=== PATIENT | male | born 1935 | race Caucasian/White ===

== ENCOUNTER → 2017-05-31 16:38 | Outpatient (CLI) | payer MEDICARE, BC, SELFPAY ==
--- NOTE | 2017-05-31 | XR_ITS ---
XR chest 2V HISTORY: Coronary artery disease, heart disease ITS.REASON: PRE CATH CXR ORDERING PHYSICIAN: Deonte Kathleen MD PATIENT AGE: 82 years COMPARISON: 08/27/2015 FINDINGS: There is cardiomegaly without failure. There has been a prior CABG. Bipolar pacemaker is present from left subclavian approach.. There is minimal blunting of the right CP angle suggesting small right-sided effusion. The lungs are otherwise clear. No lobar consolidation or collapse.. No acute bony abnormalities. IMPRESSION: Prior CABG with cardiomegaly without failure. Minimal blunting of the right CP angle suggesting small right pleural effusion
== END ==
PROVIDERS: PCP Internal Medicine; Visit Provider Internal Medicine
DX: I11.9 Hypertensive heart disease without heart failure (principal); I50.9 Heart failure, unspecified; I25.10 Atherosclerotic heart disease of native coronary artery without angina pectoris
CPT/HCPCS: 71046

== ENCOUNTER 2017-06-01 07:19 | Day surgery (SDC) | payer MEDICARE, BC, SELFPAY ==
[2017-06-01] VITALS (23 sets, daily range): BP systolic 88–117; BP diastolic 56–74; PULSE 80–89; RESP 16; TEMP 36.6; O2SAT 92–98; BMI 28.3
--- NOTE | 2017-06-01 | IR_ITS ---
CARDIAC CATHETERIZATION DATE OF CATHETERIZATION:06/01/2017 9:07 AM PROCEDURES: 1. Right heart catheterization 2. Left heart catheterization 3. Left ventriculogram 4. Selective coronary angiogram 5. Selective engagement of the left internal mammary artery to the LAD 6. Selective engagement of the saphenous vein graft to the circumflex artery 7. Selective engagement of the saphenous vein graft to the ramus intermedius INDICATION FOR TEST: 1. Ischemic cardiomyopathy 2. Accelerated angina pectoris 3. Coronary artery disease with history of bypass surgery 4. Pulmonary hypertension 5. Styloid congestive heart failure Informed consent was obtained prior to the procedure. COMPLICATIONS: None ESTIMATED BLOOD LOSS: Less than 10 ml. TECHNIQUE: One percent lidocaine was used to anesthetize the right groin. The right femoral artery was accessed via the Seldinger technique. A 4-Albanian and 7 uzbek sheath was placed in the right femoral artery and vein respectfully. The JR-4 and JL-4 catheter was also used to perform left heart catheterization, left ventriculography and selective coronary angiogram. At the end of the procedure the patient was transferred to the post-op holding area in stable condition for arterial sheath removal. ANGIOGRAPHIC RESULTS: 1. The left main artery normal 2. The left anterior descending artery has an ostial occlusion 3. The ramus intermedius is a medium-size branch and has mild proximal and mid vessel 10-20% stenoses 4. The circumflex artery is dominant and proximally occluded 5. The right coronary artery is nondominant and gives rise to a large RV marginal branch proximally which is normal. The remaining right coronary artery is a small vestigial vessel. 6. The DURAN to the LAD is a widely patent graft which backfills a large first diagonal artery 7. The saphenous vein graft to the ramus intermedius is ostially occluded 8. The saphenous vein graft to the circumflex artery is widely patent. It then skips over to a terminal obtuse marginal artery which is also widely patent. The graft is free of disease 9. The PARSONS ventriculogram reveals severe left ventricular dilatation with severely reduced ejection fraction estimated at 15-20% The left ventricular end-diastolic pressure 18 mmHg HEMODYNAMICS: Right atrial pressure is 7 mm Hg. Pulmonary arterial pressure is 33/20 mm Hg. Pulmonary artery occlusion pressure is 17 mm Hg. SATURATIONS: RA is 78 %. PA is 78 %. IMPRESSION: 1. Severe viejas three-vessel coronary artery disease as described above 2. Patent DURAN to the LAD 3. Patent DURAN to the dominant circumflex artery which is a skip graft to a first and terminal obtuse marginal artery 4. Occluded saphenous vein graft to the ramus intermedius 5. Severe left ventricular dilatation with severely reduced ejection fraction 6. Mild pulmonary hypertension yet still with decompensated euvolemic cardiopulmonary pressures PLAN: 1. Continue medical management 2. Risk factor modification
[2017-06-01 07:51] LABS: Basophils % 0.5 % (0.1-2.0); Eosinophils # 0.2 K/mm3 (0.0-0.4); Eosinophils % 2.9 % (0.1-12.0); Hematocrit 43.9 % (42.0-52.0); Lymphocytes # 0.8 K/mm3 (0.7-4.5); Lymphocytes % 13.4 K/mm3 (10-50); Mean Corpuscular HGB Conc 31.8 g/dL (31.8-35.4); Mean Corpuscular Hemoglobin 30.2 pg (27.0-31.2); Mean Corpuscular Volume 94.8 fl (80-94); Mean Platelet Volume 8.2 fl (7.4-10.4); Monocytes # 0.4 K/mm3 (0.1-1.0); Monocytes % 6.3 % (1.7-9.3); Neutrophils # 4.4 K/mm3 (1.8-7.8); Neutrophils % 76.8 % (37.0-80.0); Platelet Count 138 K/mm3 (142-424); Red Blood Count 4.63 M/mm3 (4.60-6.20); Red Cell Distribution Width 14.5 % (11.5-17.5); White Blood Count 5.7 K/mm3 (4.8-10.8)
[2017-06-01 08:00] LABS: Anion Gap 11.1 mEq/L (5-15); Blood Urea Nitrogen 17 mg/dL (7-18); Carbon Dioxide 30 mmol/L (21.0-32.0); Chloride 106 mmol/L (98-107); Creatinine Clearance Estimated 55 mL/min (0-300); Creatinine,Serum 1.17 mg/dL (0.70-1.30); Estimated Glomerular Filt Rate 60 ml/min (>60); GFR (African American) 72 ML/MIN (>60); Glucose 121 mg/dL (74-106); Potassium 4.1 mmoL/L (3.5-5.1); Sodium 143 mmol/L (136-145)
--- NOTE | 2017-06-01 10:58 | CA_ITS ---
PROCEDURE: 2-D M-mode and color Doppler study INDICATIONS FOR THE TEST: Chest pain + COPD Heart Murmur Tobacco Smoking Palpitations Fatigue Syncope Edema+ Hypertension+Diabetes Mellitus Rheumatic Fever SOB+YIP Obesity Hyperlipidemia+ Family History HD Additional History PATIENT INFORMATION HEIGHT:66 WEIGHT:177 GENDER: Male B/P:103/50 2-D/M-MODE INTERPRETATION: 2-D MEASUREMENTS OBSERVED VALUES IN CMS Right Ventricular Dimension (RVDd) 2.8 Interventricular Septum (Thickness)(IVsd) 1.6 Left Ventricular Internal Dimensions(LVIDd) 6.1 Left Ventricular Posterior Wall (Thickness)(LVPWd) 0.9 Aortic Root 3.3 Aortic Cusp Separation 1.7 Left Atrial Dimensions (LAD) 4.8 2D 1. Left atrium is moderately enlarged, left ventricle is moderately dilated, there is severely reduced left ventricular systolic function, visually estimated ejection fraction approximately 20%, left ventricle is globally hypokinetic, superimposed segmental wall motion abnormalities cannot be excluded. 2. The right atrium is normal size, right ventricle is mildly enlarged with normal contractility, there is a pacemaker lead seen in the right atrium and right ventricle. 3. The aortic valve is minimally thickened and fibrosed. 4. The mitral and tricuspid valve leaflets are minimally thickened. 5. The pulmonic valve is poorly visualized. 6. No significant pericardial effusion noted. DOPPLER INTERROGATION: Doppler interrogation of the aortic, mitral and tricuspid valvular presence of mild aortic, moderate mitral and tricuspid regurgitation, tricuspid and jet velocity insufficient for calculation of the right ventricular systolic pressure. CONCLUSION: 1. Moderately enlarged left atrium, moderately dilated left ventricle, severely reduced left ventricular systolic function, visually estimated ejection fraction approximately 20% as described above. 2. Mild aortic, moderate mitral and tricuspid regurgitation. 3. No significant pericardial effusion noted.
[2017-06-01 13:49] LABS: CATHL Arterial O2 SAT 78 % (90-100); CATHL Venous O2 SAT 78 % (75-80)
== END 2017-06-01 14:10 | disposition home or self-care (01) ==
PROVIDERS: Family Provider Internal Medicine; PCP Internal Medicine; Visit Provider Internal Medicine
DX: I25.118 Atherosclerotic heart disease of native coronary artery with other forms of angina pectoris (principal); I50.42 Chronic combined systolic (congestive) and diastolic (congestive) heart failure; I11.0 Hypertensive heart disease with heart failure; Z95.1 Presence of aortocoronary bypass graft; Z95.810 Presence of automatic (implantable) cardiac defibrillator
CPT/HCPCS: 80048; 82810; 85025; 93306; 93461; C1725; C1769; C1894; J1644; Q9967

== ENCOUNTER → 2017-06-29 14:47 | Outpatient (REF) | payer MEDICARE, BC, SELFPAY ==
[2017-06-29 14:56] LABS: Basophils % 0.6 % (0.1-2.0); Eosinophils # 0.1 K/mm3 (0.0-0.4); Eosinophils % 2.4 % (0.1-12.0); Hematocrit 43.6 % (42.0-52.0); Hemoglobin 14.1 g/dL (14.1-18.0); Lymphocytes # 0.8 K/mm3 (0.7-4.5); Lymphocytes % 14.9 K/mm3 (10-50); Mean Corpuscular HGB Conc 32.4 g/dL (31.8-35.4); Mean Corpuscular Hemoglobin 30.5 pg (27.0-31.2); Mean Corpuscular Volume 94.1 fl (80-94); Mean Platelet Volume 8.1 fl (7.4-10.4); Monocytes # 0.3 K/mm3 (0.1-1.0); Monocytes % 6.2 % (1.7-9.3); Neutrophils % 75.9 % (37.0-80.0); Platelet Count 137 K/mm3 (142-424); Red Blood Count 4.63 M/mm3 (4.60-6.20); Red Cell Distribution Width 14.7 % (11.5-17.5); White Blood Count 5.3 K/mm3 (4.8-10.8)
[2017-06-29 15:16] LABS: Alanine Aminotransferase 30 U/L (12-78); Albumin Level 3.6 gm/dL (3.4-5.0); Albumin/Globulin Ratio 1.4 (1.1-1.8); Alkaline Phosphatase 86 U/L (46-116); Anion Gap 12.5 mEq/L (5-15); Aspartate Amino Transferase 16 U/L (15-37); Blood Urea Nitrogen 11 mg/dL (7-18); Calcium 9.1 mg/dL (8.5-10.1); Carbon Dioxide 30 mmol/L (21.0-32.0); Chloride 105 mmol/L (98-107); Creatinine,Serum 1.03 mg/dL (0.70-1.30); Estimated Glomerular Filt Rate 69 ml/min (>60); GFR (African American) 84 ML/MIN (>60); Globulin 2.6 gm/dl (1.3-3.2); Glucose 98 mg/dL (74-106); Potassium 4.5 mmoL/L (3.5-5.1); Sodium 143 mmol/L (136-145); Total Protein,Serum 6.2 gm/dL (6.4-8.2)
== END ==
LOC: LAB 14:47
PROVIDERS: Visit Provider Internal Medicine
DX: K52.9 Noninfective gastroenteritis and colitis, unspecified (principal); R11.10 Vomiting, unspecified
CPT/HCPCS: 80053; 85025

== ENCOUNTER → 2017-06-30 11:01 | Outpatient (REF) | payer MEDICARE, BC, SELFPAY ==
[2017-06-30 11:04] LABS: Adenovirus F 40/41, stool Not Detected (NotDetected); Astrovirus Not Detected (NotDetected); Campylobacter Not Detected (NotDetected); Clostridium Difficile A/B, PCR Not Detected (NotDetected); Cryptosporidium Not Detected (NotDetected); Cyclospora Cayetanesis Not Detected (NotDetected); Entamoeba histolytica Not Detected (NotDetected); Enteroaggregative E coli Not Detected (NotDetected); Enteropathogenic E coli Not Detected (NotDetected); Enterotoxigenic E coli Not Detected (NotDetected); Giardia lamblia Not Detected (NotDetected); Norovirus Not Detected (NotDetected); Plesimonas Shigalloides, PCR Not Detected (NotDetected); Rotavirus A Not Detected (NotDetected); Salmonella, PCR Not Detected (NotDetected); Sapovirus Not Detected (NotDetected); Shiga-like toxin E coli Not Detected (NotDetected); Shigella Enterovasive E coli Not Detected (NotDetected); Vibrio Cholerae Not Detected (NotDetected); Vibrio, PCR Not Detected (NotDetected); Yersinia Entercolitica, PCR Not Detected (NotDetected)
== END ==
LOC: LAB 11:01
PROVIDERS: Visit Provider Internal Medicine
DX: K52.9 Noninfective gastroenteritis and colitis, unspecified (principal)
CPT/HCPCS: 87507

== ENCOUNTER → 2018-02-13 09:01 | Outpatient (CLI) | payer MEDICARE, BC, SELFPAY | PROVIDERS: PCP Internal Medicine; Visit Provider Internal Medicine | DX: I11.0 Hypertensive heart disease with heart failure (principal); I50.43 Acute on chronic combined systolic (congestive) and diastolic (congestive) heart failure | CPT/HCPCS: 93306 ==

== ENCOUNTER → 2018-03-10 11:22 | Outpatient (CLI) | payer MEDICARE, BC, SELFPAY ==
[2018-03-10 11:32] LABS: Basophils % 0.4 % (0.1-2.0); Eosinophils # 0.1 K/mm3 (0.0-0.4); Hematocrit 40.8 % (42.0-52.0); Hemoglobin 13.3 g/dL (14.1-18.0); Lymphocytes % 13.3 % (10-50); Mean Corpuscular HGB Conc 32.6 g/dL (31.8-35.4); Mean Corpuscular Hemoglobin 29.9 pg (27.0-31.2); Mean Corpuscular Volume 91.6 fl (80-94); Mean Platelet Volume 8.4 fl (7.4-10.4); Monocytes # 0.6 K/mm3 (0.1-1.0); Monocytes % 7.5 % (1.7-9.3); Neutrophils % 77.9 % (37.0-80.0); Platelet Count 138 K/mm3 (142-424); Red Blood Count 4.45 M/mm3 (4.60-6.20); Red Cell Distribution Width 14.4 % (11.5-17.5); White Blood Count 7.7 K/mm3 (4.8-10.8)
[2018-03-10 12:23] LABS: Anion Gap 11.7 mEq/L (5-15); Blood Urea Nitrogen 16 mg/dL (7-18); Calcium 9.1 mg/dL (8.5-10.1); Carbon Dioxide 32 mmol/L (21.0-32.0); Chloride 102 mmol/L (98-107); Creatinine,Serum 1.11 mg/dL (0.70-1.30); Estimated Glomerular Filt Rate 63 ml/min (>60); GFR (African American) 77 ML/MIN (>60); Glucose 104 mg/dL (74-106); Potassium 3.7 mmoL/L (3.5-5.1); Sodium 142 mmol/L (136-145); Troponin I 0.03 ng/ml (0.00-0.06)
== END ==
PROVIDERS: Visit Provider Internal Medicine
DX: R07.9 Chest pain, unspecified (principal); R10.9 Unspecified abdominal pain; R04.0 Epistaxis
CPT/HCPCS: 80048; 84484; 85025

== ENCOUNTER → 2018-03-15 07:15 | Outpatient (CLI) | payer MEDICARE, BC, SELFPAY ==
--- NOTE | 2018-03-15 07:16 | US_ITS ---
US abdomen complete HISTORY: Acute abdominal pain ITS.REASON: ABD PAIN, EPIGASTRIC PAIN ORDERING PHYSICIAN: Danish Clarke PATIENT AGE: 83 years COMPARISON: None FINDINGS: PANCREAS:Unremarkable. No obvious mass or abnormal fluid collection. No ductal dilatation LIVER:No focal liver lesions demonstrated. Homogeneous echogenicity. No intrahepatic biliary ductal dilatation evident RIGHT KIDNEY:There is a large cyst along the lower pole the right kidney measuring 19 x 9 cm. There is mild dilatation of the upper pole renal collecting system versus parapelvic renal cyst. LEFT KIDNEY:Unremarkable. No hydronephrosis. Normal size and echogenicity. GALLBLADDER:Prior cholecystectomy. Common bile duct is normal at 4 mm. AORTA:No evidence of aneurysmal dilatation. SPLEEN:Unremarkable. Normal size and echogenicity ASCITES:None demonstrated. IMPRESSION: 1. Large lobular right renal cyst along the lower pole the right kidney with mild hydronephrosis versus parapelvic renal cyst in the upper pole. 2. Prior cholecystectomy. No biliary dilatation.
--- NOTE | 2018-03-15 09:59 | XR_ITS ---
XR chest 2V HISTORY: ITS.REASON: COUGH,SPUTUM ORDERING PHYSICIAN: Danish Clarke PATIENT AGE: 83 years COMPARISON: 05/31/2017 FINDINGS: There has been a prior CABG. There is cardiomegaly without failure with bipolar pacemaker placement. No lobar consolidation or collapse is evident. There is blunting of the right CP angle which appears chronic. Irregular opacity noted over the right lung base at the 6 rib anteriorly may be due to attenuation artifact of the ribs and may be confirmed with follow-up. There are mild degenerative changes of the thoracic spine. IMPRESSION: Postsurgical changes with cardiomegaly as described above. Pacemaker in place. No change no acute finding
== END ==
PROVIDERS: PCP Internal Medicine; Visit Provider Internal Medicine
DX: R10.13 Epigastric pain (principal); R10.9 Unspecified abdominal pain
CPT/HCPCS: 71046; 76700

== ENCOUNTER → 2018-06-27 08:46 | Outpatient (CLI) | payer MEDICARE, BC, SELFPAY ==
[2018-06-27 09:10] LABS: Basophils # 0.1 K/mm3 (0-0.2); Basophils % 1.1 % (0.1-2.0); Eosinophils # 0.1 K/mm3 (0.0-0.4); Hemoglobin 15.3 g/dL (14.1-18.0); Lymphocytes # 1.3 K/mm3 (0.7-4.5); Lymphocytes % 18.7 % (10-50); Mean Corpuscular HGB Conc 32.5 g/dL (31.8-35.4); Mean Corpuscular Hemoglobin 30.1 pg (27.0-31.2); Mean Corpuscular Volume 92.5 fl (80-94); Monocytes # 0.4 K/mm3 (0.1-1.0); Monocytes % 5.6 % (1.7-9.3); Neutrophils # 5.2 K/mm3 (1.8-7.8); Neutrophils % 73.6 % (37.0-80.0); Platelet Count 191 K/mm3 (142-424); Red Blood Count 5.08 M/mm3 (4.60-6.20); Red Cell Distribution Width 14.7 % (11.5-17.5)
[2018-06-27 10:36] LABS: Alanine Aminotransferase 53 U/L (12-78); Albumin Level 3.9 gm/dL (3.4-5.0); Alkaline Phosphatase 90 U/L (46-116); Anion Gap 14.4 mEq/L (5-15); Aspartate Amino Transferase 32 U/L (15-37); Bilirubin,Direct 0.4 mg/dL (0.0-0.2); Bilirubin,Indirect 0.9 mg/dL (0.0-0.9); Bilirubin,Total 1.3 mg/dL (0.2-1.0); Blood Urea Nitrogen 26 mg/dL (7-18); Calcium 9.2 mg/dL (8.5-10.1); Carbon Dioxide 31 mmol/L (21.0-32.0); Chloride 103 mmol/L (98-107); Chol/HDL Ratio 3.6 (1-3.5); Cholesterol 165 mg/dL (140-200); Creatinine,Serum 1.46 mg/dL (0.70-1.30); Estimated Glomerular Filt Rate 46 ml/min (>60); Free Thyroxine Index 4.8 ug/dL (5.93-13.13); GFR (African American) 56 ML/MIN (>60); Glucose 129 mg/dL (74-106); HDL Cholesterol 46 mg/dL (27-67); LDL Cholesterol 101 mg/dL (0-130); Potassium 3.4 mmoL/L (3.5-5.1); Sodium 145 mmol/L (136-145); T4 (Thyroxine) 13.1 ug/dl (4.7-13.3); Thyroid Stimulating Hormone 2.85 uIU/ml (0.358-3.740); Total Protein,Serum 6.5 gm/dL (6.4-8.2); Triglycerides 92 mg/dL (30-200); Triiodothryronine (T3) Uptake 37 % (31-39); VLDL Cholesterol 18 mg/dL (0-40)
== END ==
PROVIDERS: Visit Provider Internal Medicine
DX: I47.2 Ventricular tachycardia (principal); E78.5 Hyperlipidemia, unspecified; I42.9 Cardiomyopathy, unspecified; R06.00 Dyspnea, unspecified; I50.9 Heart failure, unspecified; Z95.810 Presence of automatic (implantable) cardiac defibrillator; Z95.1 Presence of aortocoronary bypass graft
CPT/HCPCS: 36415; 80048; 80061; 80076; 84436; 84443; 84479; 85025

== ENCOUNTER → 2018-07-12 09:35 | Outpatient (CLI) | payer MEDICARE, BC, SELFPAY ==
[2018-07-12 10:33] LABS: Alanine Aminotransferase 52 U/L (12-78); Albumin Level 3.5 gm/dL (3.4-5.0); Alkaline Phosphatase 83 U/L (46-116); Anion Gap 9.6 mEq/L (5-15); Aspartate Amino Transferase 30 U/L (15-37); Bilirubin,Direct 0.3 mg/dL (0.0-0.2); Bilirubin,Indirect 0.6 mg/dL (0.0-0.9); Bilirubin,Total 0.9 mg/dL (0.2-1.0); Blood Urea Nitrogen 19 mg/dL (7-18); Carbon Dioxide 32 mmol/L (21.0-32.0); Chloride 105 mmol/L (98-107); Creatinine,Serum 1.25 mg/dL (0.70-1.30); Estimated Glomerular Filt Rate 55 ml/min (>60); GFR (African American) 67 ML/MIN (>60); Glucose 123 mg/dL (74-106); Potassium 3.6 mmoL/L (3.5-5.1); Sodium 143 mmol/L (136-145)
== END ==
PROVIDERS: Visit Provider Physician Assistant
DX: E78.5 Hyperlipidemia, unspecified (principal); I11.9 Hypertensive heart disease without heart failure; I25.10 Atherosclerotic heart disease of native coronary artery without angina pectoris; I25.2 Old myocardial infarction; I42.9 Cardiomyopathy, unspecified; I47.2 Ventricular tachycardia; I48.91 Unspecified atrial fibrillation; I50.9 Heart failure, unspecified; R06.00 Dyspnea, unspecified; R60.9 Edema, unspecified; Z79.01 Long term (current) use of anticoagulants; Z95.1 Presence of aortocoronary bypass graft; Z95.810 Presence of automatic (implantable) cardiac defibrillator
CPT/HCPCS: 36415; 80048; 80076

== ENCOUNTER → 2018-08-23 10:07 | Outpatient (CLI) | payer MEDICARE, BC, SELFPAY ==
[2018-08-23 10:56] LABS: Basophils # 0.1 K/mm3 (0-0.2); Basophils % 0.7 % (0.1-2.0); Eosinophils # 0.1 K/mm3 (0.0-0.4); Eosinophils % 1.5 % (0.1-12.0); Hematocrit 42.1 % (42.0-52.0); Hemoglobin 13.9 g/dL (14.1-18.0); Lymphocytes # 0.9 K/mm3 (0.7-4.5); Lymphocytes % 14.4 % (10-50); Mean Corpuscular HGB Conc 33.1 g/dL (31.8-35.4); Mean Corpuscular Hemoglobin 30.1 pg (27.0-31.2); Mean Corpuscular Volume 90.8 fl (80-94); Mean Platelet Volume 7.2 fl (7.4-10.4); Monocytes # 0.4 K/mm3 (0.1-1.0); Monocytes % 5.8 % (1.7-9.3); Neutrophils # 5.1 K/mm3 (1.8-7.8); Neutrophils % 77.6 % (37.0-80.0); Platelet Count 140 K/mm3 (142-424); Red Blood Count 4.63 M/mm3 (4.60-6.20); Red Cell Distribution Width 15.3 % (11.5-17.5); White Blood Count 6.6 K/mm3 (4.8-10.8)
[2018-08-23 13:42] LABS: Anion Gap 11.9 mEq/L (5-15); Blood Urea Nitrogen 24 mg/dL (7-18); Calcium 9.3 mg/dL (8.5-10.1); Carbon Dioxide 33 mmol/L (21.0-32.0); Chloride 106 mmol/L (98-107); Creatinine,Serum 1.12 mg/dL (0.70-1.30); Estimated Glomerular Filt Rate 63 ml/min (>60); GFR (African American) 76 ML/MIN (>60); Glucose 113 mg/dL (74-106); Potassium 4.9 mmoL/L (3.5-5.1); Sodium 146 mmol/L (136-145)
[2018-08-23 15:20] LABS: Alanine Aminotransferase 31 U/L (12-78); Albumin Level 3.6 gm/dL (3.4-5.0); Alkaline Phosphatase 85 U/L (46-116); Aspartate Amino Transferase 25 U/L (15-37); Bilirubin,Total 0.8 mg/dL (0.2-1.0); Chol/HDL Ratio 3.2 (1-3.5); Cholesterol 177 mg/dL (140-200); HDL Cholesterol 56 mg/dL (27-67); LDL Cholesterol 106 mg/dL (0-130); Thyroid Stimulating Hormone 2.95 uIU/ml (0.358-3.740); Total Protein,Serum 6.2 gm/dL (6.4-8.2); Triglycerides 75 mg/dL (30-200); VLDL Cholesterol 15 mg/dL (0-40)
[2018-08-23 15:25] LABS: Prostate Specific Ag, Diagnost 0 ng/mL (0.0-4.0)
== END ==
PROVIDERS: Physician Assistant; PCP Internal Medicine; Visit Provider Internal Medicine
DX: I50.22 Chronic systolic (congestive) heart failure; I25.118 Atherosclerotic heart disease of native coronary artery with other forms of angina pectoris; K22.70 Barrett's esophagus without dysplasia; Z95.1 Presence of aortocoronary bypass graft; Z79.01 Long term (current) use of anticoagulants; Z85.46 Personal history of malignant neoplasm of prostate
CPT/HCPCS: 36415; 80048; 80061; 82040; 82247; 83880; 84075; 84153; 84155; 84443; 84450; 84460; 85025

== ENCOUNTER → 2018-09-06 09:27 | Outpatient (CLI) | payer MEDICARE, BC, SELFPAY ==
[2018-09-06 10:29] LABS: Anion Gap 9.9 mEq/L (5-15); Blood Urea Nitrogen 24 mg/dL (7-18); Carbon Dioxide 34 mmol/L (21.0-32.0); Chloride 105 mmol/L (98-107); Creatinine,Serum 1.21 mg/dL (0.70-1.30); Estimated Glomerular Filt Rate 57 ml/min (>60); GFR (African American) 69 ML/MIN (>60); Glucose 122 mg/dL (74-106); Potassium 3.9 mmoL/L (3.5-5.1); Sodium 145 mmol/L (136-145)
== END ==
PROVIDERS: Visit Provider Physician Assistant
DX: I50.9 Heart failure, unspecified (principal)
CPT/HCPCS: 36415; 80048

== ENCOUNTER → 2018-09-18 10:19 | Outpatient (CLI) | payer MEDICARE, BC, SELFPAY ==
[2018-09-18 12:32] LABS: Anion Gap 11.3 mEq/L (5-15); Blood Urea Nitrogen 27 mg/dL (7-18); Calcium 8.9 mg/dL (8.5-10.1); Carbon Dioxide 33 mmol/L (21.0-32.0); Chloride 105 mmol/L (98-107); Creatinine,Serum 1.21 mg/dL (0.70-1.30); Estimated Glomerular Filt Rate 57 ml/min (>60); GFR (African American) 69 ML/MIN (>60); Glucose 106 mg/dL (74-106); Potassium 4.3 mmoL/L (3.5-5.1); Sodium 145 mmol/L (136-145)
== END ==
PROVIDERS: Visit Provider Physician Assistant
DX: E78.5 Hyperlipidemia, unspecified (principal); I11.9 Hypertensive heart disease without heart failure; I25.10 Atherosclerotic heart disease of native coronary artery without angina pectoris; I42.9 Cardiomyopathy, unspecified; I48.91 Unspecified atrial fibrillation; I50.9 Heart failure, unspecified; R60.9 Edema, unspecified; Z95.1 Presence of aortocoronary bypass graft; Z95.810 Presence of automatic (implantable) cardiac defibrillator
CPT/HCPCS: 36415; 80048

== ENCOUNTER → 2018-10-18 08:39 | Outpatient (CLI) | payer MEDICARE, BC, SELFPAY ==
[2018-10-18 09:45] LABS: Anion Gap 10.5 mEq/L (5-15); Blood Urea Nitrogen 23 mg/dL (7-18); Calcium 9.4 mg/dL (8.5-10.1); Carbon Dioxide 33 mmol/L (21.0-32.0); Chloride 102 mmol/L (98-107); Creatinine,Serum 1.26 mg/dL (0.70-1.30); Estimated Glomerular Filt Rate 55 ml/min (>60); GFR (African American) 66 ML/MIN (>60); Glucose 133 mg/dL (74-106); Magnesium 1.9 mg/dL (1.4-2.2); Potassium 3.5 mmoL/L (3.5-5.1); Sodium 142 mmol/L (136-145)
== END ==
PROVIDERS: Visit Provider Nurse Practitioner Family
DX: R60.0 Localized edema (principal); I50.9 Heart failure, unspecified
CPT/HCPCS: 36415; 80048; 83735

== ENCOUNTER → 2018-11-07 08:31 | Outpatient (CLI) | payer MEDICARE, BC, SELFPAY ==
--- NOTE | 2018-11-07 08:33 | CA_ITS ---
APPROVED REPORT EXAM: Comprehensive 2D, Doppler, and color-flow Echocardiogram [place]rub Planter: Sakina Roman RT(R) Ht: 5 ft 6 in Wt: 159lbs BSA: 1.81 BP: 122/80 mmHg Indications: Cardiomyopathy Left Ventricle Left atrium is moderately enlarged, left ventricle is moderately dilated, severely reduced left ventricular systolic function, visually estimated ejection fraction of 20%, left ventricle is globally hypokinetic. Right Ventricle Right atrium is moderately enlarged, right ventricle is normal size and contractility, there is a pacemaker leads in right ventricle. Aortic Valve Aortic valve is thickened and calcified, there is no aortic stenosis, there is mild aortic insufficiency. Mitral Valve Mitral valve leaflets are minimally thickened, there is no mitral stenosis, there is mild mitral regurgitation. Tricuspid Valve Tricuspid valve is grossly normal, there is moderate tricuspid regurgitation, calculated right ventricular systolic pressure 67 mmHg consistent with moderate pulmonary hypertension, inferior vena cava is dilated without significant inspiratory collapse. Pulmonic Valve Pulmonic valve is poorly visualized. Great Vessels Aortic root is normal size. Pericardium No significant pericardial effusion noted. 2D Dimensions LVOT 2.20 cm (M/F) 1.5-2.5 M-Mode Dimensions RVDd 2.00 cm (0.9-2.6) LA Diam 4.10 cm (1.9-4.0) LVDd 8.10 cm (3.5-5.7) Ao Diam 3.00 cm (2.0-3.7) LVDs 7.30 cm (3.5-5.7) AV Cusp 2.10 cm (1.5-2.6) IVSd 0.70 cm (0.6-1.1) PWd 0.90 cm (0.6-1.1) EF (Teich) 20.60% FS 9.88% EDV (Teich) 354.00 mL ESV (Teich) 281.00 mL LV Diastology E/A Ratio 1.30 MED E' 3.80 (< 7 cm/sec) E'/MED E' Ratio 26.80 (>14) LAT E' 6.43 (<10 cm/sec) E/LAT E' Ratio 15.90 (>14) Aortic Valve LVOT Max 141.00 (70-110 cm/s) LVOT VTI 26.00 cm AoV Peak Vic. 170.00 (50-130 cm/s) AI PHT 923.00 ms AO Peak GR. 12.00 mmHg AO Mean GR. 6.00 (<5 mmHg) AO VTI 29.50 (18-25 cm) KORY (VTI) 3.35 (2.5-4.5 cm2) Mitral Valve MV E Max Vic. 102.00 (40-130 cm/s) MV A Velocity 78.00 (40-130 cm/s) E/A Ratio 1.30 Tricuspid Valve TR P. Velocity 360.00 cm/s RAP Estimate 15.00 mmHg RVSP 67.00 mmHg Conclusion 1. Biatrial enlargement, dilated left ventricle, severely distal ventricular systolic function, visually estimated ejection fraction 20%, left ventricle is globally hypokinetic. 2. Mild aortic, mild mitral and moderate tricuspid regurgitation, calculated right ventricular systolic pressure 67 mmHg consistent with moderate pulmonary hypertension, inferior vena cava is dilated without significant inspiratory collapse. 3. No significant pericardial effusion noted. Electronically signed by : Manuel Mcdonald, 11/10/2018 14:12:47
== END ==
PROVIDERS: PCP Internal Medicine; Visit Provider Urology
DX: R06.09 Other forms of dyspnea (principal)
CPT/HCPCS: 93306

== ENCOUNTER → 2018-11-20 09:14 | Outpatient (CLI) | payer MEDICARE, BC, SELFPAY ==
[2018-11-20 10:33] LABS: Anion Gap 10.1 mEq/L (5-15); Blood Urea Nitrogen 30 mg/dL (7-18); Calcium 9.2 mg/dL (8.5-10.1); Carbon Dioxide 33 mmol/L (21.0-32.0); Chloride 105 mmol/L (98-107); Creatinine,Serum 1.42 mg/dL (0.70-1.30); Estimated Glomerular Filt Rate 48 ml/min (>60); GFR (African American) 58 ML/MIN (>60); Glucose 122 mg/dL (74-106); Potassium 4.1 mmoL/L (3.5-5.1); Sodium 144 mmol/L (136-145)
== END ==
PROVIDERS: Visit Provider Physician Assistant
DX: I25.10 Atherosclerotic heart disease of native coronary artery without angina pectoris (principal); I25.2 Old myocardial infarction; I42.9 Cardiomyopathy, unspecified; I48.91 Unspecified atrial fibrillation; I50.22 Chronic systolic (congestive) heart failure; R06.00 Dyspnea, unspecified; R60.9 Edema, unspecified; Z79.01 Long term (current) use of anticoagulants; Z95.1 Presence of aortocoronary bypass graft
CPT/HCPCS: 36415; 80048

== ENCOUNTER → 2018-12-04 08:51 | Outpatient (POV) | payer MEDICARE, BC, SELFPAY | PROVIDERS: PCP Internal Medicine; Visit Provider Nurse Practitioner Family | DX: Z00.00 Encounter for general adult medical examination without abnormal findings (principal) ==

== ENCOUNTER → 2018-12-21 10:10 | Outpatient (CLI) | payer MEDICARE, BC, SELFPAY ==
[2018-12-21 11:25] LABS: Anion Gap 8.9 mEq/L (5-15); Blood Urea Nitrogen 21 mg/dL (7-18); Calcium 9.3 mg/dL (8.5-10.1); Carbon Dioxide 32 mmol/L (21.0-32.0); Chloride 106 mmol/L (98-107); Creatinine,Serum 1.09 mg/dL (0.70-1.30); Estimated Glomerular Filt Rate 65 ml/min (>60); GFR (African American) 78 ML/MIN (>60); Glucose 112 mg/dL (74-106); Potassium 3.9 mmoL/L (3.5-5.1); Sodium 143 mmol/L (136-145)
== END ==
PROVIDERS: Visit Provider Internal Medicine Cardiovascular Disease
DX: E78.5 Hyperlipidemia, unspecified (principal); I11.9 Hypertensive heart disease without heart failure; I25.10 Atherosclerotic heart disease of native coronary artery without angina pectoris; I25.2 Old myocardial infarction; I42.9 Cardiomyopathy, unspecified; I48.91 Unspecified atrial fibrillation; I50.22 Chronic systolic (congestive) heart failure; I50.9 Heart failure, unspecified; R06.00 Dyspnea, unspecified; R60.9 Edema, unspecified; Z95.1 Presence of aortocoronary bypass graft; Z95.810 Presence of automatic (implantable) cardiac defibrillator
CPT/HCPCS: 36415; 80048

== ENCOUNTER → 2019-11-01 09:45 | Outpatient (CLI) | payer MEDICARE, BC, SELFPAY ==
[2019-11-01 11:16] LABS: Coronavirus 19 IgG Antibody Negative (Negative); Coronavirus 19 IgM Antibody Negative (Negative)
== END ==
PROVIDERS: Visit Provider Internal Medicine Gastroenterology
DX: Z01.818 Encounter for other preprocedural examination (principal)
CPT/HCPCS: 36415; 86328

== ENCOUNTER 2019-11-02 08:47 | Day surgery (SDC) | payer MEDICARE, BC, SELFPAY ==
[2019-10-31 14:30] VITALS: BMI 24.8
[2019-11-02 09:38] VITALS: BP 119/59; PULSE 69; RESP 20; TEMP 36.2; O2SAT 93
[2019-11-02 11:15] VITALS: O2SAT 97
--- NOTE | 2019-11-02 11:22 | HMH.ANESCL ---
[facility] Anesthesia Checklist - Patient Identification Patient Identification: Arm Band, Verbal (Name & ) - Structural Data Admitted From: Home Planned Operative Procedure/s: EGD Consent for Planned Operative Procedure(s) Verified: Yes Verified Documents: Surgical Consent, History and Physical - NPO Status Verified Time NPO: 00:00 - Chart Verification Results Verified: None - Additional verifications Anesthesia Reactions: No Hx Blood Transfusions: No Blood Transfusion Reaction: No - Airway Assessment C-Spine Mobility Assessed: Yes TMJ Mobility Assessed: Yes Dentition: Poor Dentition (missing,) - Neurological Assessment Level of Consciousness: Awake, Alert, Appropriate, Follows Commands Hx Seizures: No Numbness or tingling in extremities: No - Anesthesia Plan Anesthesia Risk discussed: Yes Anesthesia Plan: Verified ASA Class: III Anesthesia Type: MAC [facility] History I have reviewed the patient's past medical history: Yes Medical History: Reports:: Atrial Fibrillation, Cancer (ESOPHAGUS), Cardiomyopathy, Congestive Heart Failure, Coronary Artery Disease, Gastroesophageal Reflux Disease(GERD), Hyperlipidemia, Hypertension, Internal Pacemaker, Lung Disease, Myocardial Infarction Denies:: Diabetes Mellitus Type 1, Diabetes Mellitus Type 2, MRSA, Seizures *Have you ever received a pneumonia vaccine?: Yes *Have you received a flu vaccine this season?: Yes (2019) Other Medical History: Reports: Arthritis. Denies: Blood Transfusion Reaction Anesthesia experience/problems:: No prior complications Laterality Cases: Bilateral: Tonsillectomy Other Surgeries: Yes: Angioplasty, CABG, Cardiac Catheterization, Coronary Stent, EGD, Hernia Repair, Pacemaker, Other Amputation: No Fractures: No - *Social History Last grade of school completed: Advanced degree Smoking Status: Never smoker Alcohol Intake: never Substance Use Type: denies use *Occupational Status:: unemployed Housing: house Household Members: family *Travel in the last 8 weeks: None Family Hx:: Coronary Artery Disease, Diabetes, Heart Attack
--- NOTE | 2019-11-02 11:39 | HMH.PROC ---
[facility] Procedure Note Procedure Note:: Upper Endoscopy Procedure Report: Esophagogastroduodenoscopy with cold biopsies and TTS balloon dilation Endoscopost: Grant Adkins II, MD Referring Physician: Danish Clarke MD/Dr. Cardozo (GI at [facility]) Date of Procedure: November 02, 2019 Equipment: Olympus GIF 180 standard upper endoscope Sedation: MAC sedation Indications: Mr. Blanco is an 84-year-old gentleman with a history of dyspepsia and dysphagia. He did have a prior history of Mims's esophagus with high-grade dysplasia and and he did go to [facility] in 2014 and had endoscopic mucosal resection. He also had radiofrequency ablation. He had an EGD with [facility] in September 2018 and had very short segment Mims's esophagus. Narrowband imaging was utilized and there were 2 different sites with high-grade mucosal dysplasia. He has not wanted to do endoscopic mucosal resection but I did send him to Dr. Andrade at the [facility] to discuss this. He does have a significant cardiomyopathy with CASHD. The patient does report some recurrent dysphagia, heartburn and burning sensation. He has had some intentional weight loss. He does have some postprandial coughing. The patient has taken omeprazole and pantoprazole for chronic GERD. There was some mild linear reactive gastropathy of the antrum Procedure: Prior to the procedure, a history and physical exam was performed, and patient's medications and allergies were reviewed. The risks, benefits and alternatives of the sedation and procedure were discussed with the patient. All questions were answered and informed consent was obtained. The patient was brought to the procedure room. Patient identification and proposed procedure were verified by the physician and the nurse. The patient was placed in a left lateral decubitus position and the scope was passed under direct vision. Throughout the procedure, the patient's blood pressure, pulse, and oxygen saturations were monitored continuously. The upper GI endoscopy was accomplished without difficulty. The patient tolerated the procedure well. Findings: The scope was passed directly into the upper esophagus and advanced to the third portion of the duodenum. The post bulbar duodenum and duodenal bulb were normal with normal mucosa and conniventes. The scope was withdrawn through a normal duodenal bulb and pylorus into the stomach. There was some mild linear reactive gastropathy of the antrum. There was mild chronic gastritis of the body and fundus. Upon retroflexion there was a 2 cm hiatal hernia. The scope was withdrawn into the esophagus. There was evidence of glandular dysplasia and some nodular glandular changes at the GE junction with a serrated Z line and short segment Mims's esophagus. Directed biopsies were taken in 2 different formalin jars labeled Mims's #1 and Mims's #2. There was grade B reflux esophagitis. There was no obvious distal esophageal cancer. There was some minor peptic stricture and the distal esophagus was dilated to 60 Korean/20 mm with a TTS hydrostatic balloon. Impression: 1. Short segment Mims's esophagus with NBI evidence of dysplasia status post biopsies 2. Grade B reflux esophagitis with peptic stricture and mild esophageal dysmotility with small 2 cm hiatal hernia status post dilation to 20 mm Plan: I will follow-up the biopsies. Given the patient's age and cardiac comorbidity, we will discuss whether we should consider EMR/radiofrequency ablation again. I would continue PPI therapy and consider promotility therapy.
[2019-11-02 11:42] VITALS: BP 80/49; PULSE 73; RESP 18; TEMP 36.1; O2SAT 92
[2019-11-02 11:52] VITALS: BP 103/61; PULSE 70; RESP 18; O2SAT 97
[2019-11-02 12:02] VITALS: BP 115/69; PULSE 70; RESP 18; O2SAT 100
[2019-11-02 12:25] VITALS: BP 113/67; PULSE 71; RESP 18; O2SAT 99
== END 2019-11-02 12:29 | disposition hospice, home (50) ==
PROVIDERS: PCP Internal Medicine; Visit Provider Internal Medicine Gastroenterology
PROC: 0DJ08ZZ Inspection of Upper Intestinal Tract, Via Natural or Artificial Opening Endoscopic (ICD-10-PCS; CPT 43235; principal; 2019-11-02 10:00)
DX: K22.711 Barrett's esophagus with high grade dysplasia (principal); K22.4 Dyskinesia of esophagus; K21.0 Gastro-esophageal reflux disease with esophagitis; K44.9 Diaphragmatic hernia without obstruction or gangrene; Z85.01 Personal history of malignant neoplasm of esophagus; Z87.19 Personal history of other diseases of the digestive system; I25.10 Atherosclerotic heart disease of native coronary artery without angina pectoris; I42.9 Cardiomyopathy, unspecified; I50.9 Heart failure, unspecified; I11.0 Hypertensive heart disease with heart failure; E78.5 Hyperlipidemia, unspecified; I25.2 Old myocardial infarction; Z95.0 Presence of cardiac pacemaker
CPT/HCPCS: 43233; 88305; C1726

== ENCOUNTER → 2020-01-14 14:49 | Outpatient (CLI) | payer MEDICARE, BC, SELFPAY ==
--- NOTE | 2020-01-14 14:54 | XR_ITS ---
PROCEDURE: XR SHOULDER LT MIN 2V CLINICAL INDICATION: LT SHOULDER PAIN COMPARISON: No exams were available for comparison FINDINGS: Is intact, there is minor degenerate change of the AC joint with spurring inferiorly. The humeral head and glenoid appear intact. The left-sided cardiac pacemaker is seen overlying the left lower lateral chest wall IMPRESSION: Minor degenerative change AC joint otherwise negative left shoulder Dictated by: Dr. Rashi Ventura MD 01/14/2020 15:20 Dr. Rashi Ventura MD in [place] 01/14/2020 15:20
--- NOTE | 2020-01-14 14:55 | XR_ITS ---
PROCEDURE: XR HIP LT 2-3V W/PELVIS CLINICAL INDICATION: LT HIP PAIN COMPARISON: CR HIPCMRT XR hip RT 2-3V w/pelvis from 06/16/2018 FINDINGS: No fracture or dislocation is evident. No significant degenerative change. There is minor spurring of the acetabulum bilaterally. The SI joints and symphysis pubis appear normal. There is disc space narrowing and osteophytic spurring the L4-5 level lumbar spine. No lytic or blastic change. Unremarkable soft tissues. IMPRESSION: Minor osteoarthritic changes of both hips, no acute fracture seen Dictated by: Dr. Rashi Ventura MD 01/14/2020 15:23 Dr. Rashi Ventura MD in [place] 01/14/2020 15:23
== END ==
PROVIDERS: PCP Internal Medicine; Visit Provider Internal Medicine
DX: M25.512 Pain in left shoulder (principal); M25.552 Pain in left hip
CPT/HCPCS: 73030; 73502

== ENCOUNTER 2020-01-28 18:06 | Emergency (ER) | payer MEDICARE, BC, SELFPAY ==
[2020-01-28 18:16] VITALS: BP 158/89; PULSE 49; RESP 17; TEMP 36.9; O2SAT 99; BMI 23.8
--- NOTE | 2020-01-28 18:26 | CT_ITS ---
PROCEDURE: CT ABDOMEN PELVIS W CON CLINICAL INDICATION: pain, swelling Right lower abdominal pain, inguinal pain and swelling COMPARISON: CT ABDPELW CT ABD PELVIS W/ CONTRAST from 11/26/2016 TECHNIQUE: IV Contrast: 75ML OPTIRAY 350 Oral Contrast None Axial images obtained with sagittal and coronal reformats. All CT scans at the facility use one or more dose reduction, viz: automated exposure control, ma/kV adjustment per patient size (including targeted exams where dose is matched to indication, i.e. head), or iterative reconstruction technique. FINDINGS: LOWER THORAX: There are atelectatic changes or scarring in the lung bases. There is cardiomegaly. Artifact is present from cardiac pacemaker device. There has been a prior CABG. There is mild thickening of the GE junction with a small hiatal hernia noted. ABDOMEN & PELVIS: Prior cholecystectomy with biliary ectasia. There is a small duodenal diverticulum in the pancreatic head region. The biliary ectasia has increased compared to 11/26/2016. There is also mild prominence of the pancreatic duct. No focal liver lesion. The spleen, adrenal glands, and left kidney have an unremarkable appearance. There is a large right renal cyst measuring 16 x 13 cm. This does not appear significantly changed in size compared to the previous exam. This cyst is causing right-sided hydronephrosis stretching the renal collecting system and right ureter posteriorly. There is a exophytic left renal cyst at 1 cm. No intestinal obstruction or free air. No evidence of appendicitis. There is colonic diverticulosis without diverticulitis. Diverticula also involve the terminal ileum. No intestinal obstruction or free air. Hypodensity is present anterior to the right external iliac artery and could be due to small lymph node or cyst. This is not significantly changed measuring 1.5 cm. There is mild lumbar scoliosis convex left. IMPRESSION: 1. Small bilateral inguinal hernias containing fat and small amount fluid on the right. No evidence of bowel herniation or obstruction. 2. Colonic diverticulosis without diverticulitis. There also some diverticula involving the terminal ileum. 3. Large right renal cyst demonstrating simple cystic features unchanged in size but causing right-sided hydronephrosis due to extrinsic mass effect on the proximal right ureter and renal pelvis 4. Prior cholecystectomy with moderate dilatation of the common bile duct and intrahepatic biliary radicles. MRCP may provide further evaluation. Dictated by: Williams Key MD 01/29/2020 09:22 Williams Key MD in [place] 01/29/2020 09:22
--- NOTE | 2020-01-28 18:44 | PC.NURSE ---
po contrast completed. radiology notified
--- NOTE | 2020-01-28 18:45 | HMH.EDABDPAI ---
ED Disposition Condition on Discharge: Good - Critical Care Critical Care Time: No <GregRicardo - Last Filed: 01/28/20 19:38> <Drew Negro - Last Filed: 01/28/20 21:51> Clinical Impression: Abdominal pain in male, Renal cyst, Diverticulosis Inguinal hernia Qualifiers: Obstruction and gangrene presence: without obstruction or gangrene Laterality: bilateral Recurrence: not specified as recurrent Qualified Code(s): K40.20 - Bilateral inguinal hernia, without obstruction or gangrene, not specified as recurrent Disposition: Home, Self-Care Instructions: DI for Acute Abdomen Additional Instructions: call pcp for follow up Referrals: Danish Clarke [Primary Care Provider] - Attestation: On 01/28/20, the high probability of a clinically significant, sudden or life threatening deterioration of the following system(s) required my full and direct attention, intervention and personal management. The time I documented below is in addition to time spent performing reported procedures but includes the following listed in this critical care notation. Medical Decision Making - Medical Records Medical records reviewed: Yes: I reviewed the patient's medical records. - Bo Inquiry Pt receiving controlled substance: Yes Bo was queried for this patient: No Reason not queried -: Emergent pt cond-no time Risks and benefits of using a controlled substance: were discussed with pt by me - Lab Data Result diagrams: 01/28/20 18:45 01/28/20 18:45 - Reevaluation(s) Time: 19:38 <JefryivrgilRicardo marshall - Last Filed: 01/28/20 19:38> - Lab Data Lab results reviewed: Yes: I reviewed the patient's lab results. Result diagrams: 01/28/20 18:45 01/28/20 18:45 - CT Data CT Scan: Abdomen, Pelvis Time Received: 21:[address] Reviewed: Yes: I have viewed the radiologist's interpretation Preliminary Findings: Abnormal (see chart ) - Reevaluation(s) Time: 21:49 <Drew Negro - Last Filed: 01/28/20 21:51> Vital Signs: 01/28/20 18:16 Temperature 98.5 F Temperature Source Oral Pulse Rate [Right Radial] 49 L Respiratory Rate 17 Blood Pressure [Right Arm] 158/89 H Blood Pressure Mean [Right Arm] 112 02 Sat by Pulse Oximetry 99 Oxygen Delivery Method Room Air - Lab Data Lab Results 01/28/20 18:45: WBC 7.5, RBC 4.87, Hgb 14.7, Hct 45.5, MCV 93.6, MCH 30.3, MCHC 32.4, RDW 14.5, Plt Count 174, MPV 7.8, Neut % (Auto) 71.3, Lymph % (Auto) 20.9, Screven % (Auto) 5.0, Eos % (Auto) 2.2, Baso % (Auto) 0.7, Neut # (Auto) 5.4, Lymph # (Auto) 1.6, Screven # (Auto) 0.4, Eos # (Auto) 0.2, Baso # (Auto) 0.1 01/28/20 18:45: Sodium 139, Potassium 3.3 L, Chloride 98, Carbon Dioxide 31 H, Anion Gap 13.3, BUN 18, Creatinine 1.00, Estimated Creat Clear 52, Estimated GFR 71, Est GFR ( Amer) 86, Glucose 123 H, Calcium 9.7, Total Bilirubin 0.8, AST 29, ALT 19, Alkaline Phosphatase 81, Total Protein 7.3, Albumin 4.5, Globulin 2.8, Albumin/Globulin Ratio 1.6, Lipase 89 01/28/20 19:48: Urine Color Yellow, Urine Appearance Clear, Urine pH 6.0, Ur Specific Brinson 1.020, Urine Protein Negative, Urine Glucose (UA) Negative, Urine Ketones Negative, Urine Blood 1+, Urine Nitrate Negative, Urine Bilirubin Negative, Urine Urobilinogen 0.2, Ur Leukocyte Esterase Negative, Urine RBC 5-10, Urine WBC 5-10, Ur Squamous Epith Cells 3-5, Urine Bacteria 1+, Hyaline Casts 5-10 Orders (Tests/Meds): ED MEDICATIONS Discontinued Medications Generic Name Dose Route Start Last Admin Trade Name Freq PRN Reason Stop Dose Admin Diatrizoate Meglum/Diatrizoate Sod 30 ml 01/28/20 18:26 01/28/20 18:30 Diatrizoate Cecilia 66% & Diatrizoate Na 10% 30ml Udc PO 01/28/20 18:27 30 ml ONCE ONE Administration Iopamidol 75 ml 01/28/20 20:41 01/28/20 20:42 Iopamidol-370 (76%); 50ml Vial IV 01/28/20 20:42 75 ml ONCE ONE Administration Morphine Sulfate 4 mg 01/28/20 18:27 01/28/20 18:30 Morphine 4mg/Ml Syringe IV 01/28/20 18:28 4 mg
[2020-01-28 18:50] LABS: Basophils # 0.1 K/mm3 (0-0.2); Basophils % 0.7 % (0.1-2.0); Eosinophils # 0.2 K/mm3 (0.0-0.4); Eosinophils % 2.2 % (0.1-12.0); Hematocrit 45.5 % (42.0-52.0); Hemoglobin 14.7 g/dL (14.1-18.0); Lymphocytes # 1.6 K/mm3 (0.7-4.5); Lymphocytes % 20.9 % (10-50); Mean Corpuscular HGB Conc 32.4 g/dL (31.8-35.4); Mean Corpuscular Hemoglobin 30.3 pg (27.0-31.2); Mean Corpuscular Volume 93.6 fl (80-94); Mean Platelet Volume 7.8 fl (7.4-10.4); Monocytes # 0.4 K/mm3 (0.1-1.0); Neutrophils # 5.4 K/mm3 (1.8-7.8); Neutrophils % 71.3 % (37.0-80.0); Platelet Count 174 K/mm3 (142-424); Red Blood Count 4.87 M/mm3 (4.60-6.20); Red Cell Distribution Width 14.5 % (11.5-17.5); White Blood Count 7.5 K/mm3 (4.8-10.8)
[2020-01-28 18:57] LABS: Chloride 98 mmol/L (98-107); Potassium 3.3 mmoL/L (3.5-5.1); Sodium 139 mmol/L (136-145)
[2020-01-28 18:59] LABS: Alanine Aminotransferase 19 U/L (12-78); Alkaline Phosphatase 81 U/L (38-126); Aspartate Amino Transferase 29 U/L (17-59); Bilirubin,Total 0.8 mg/dl (0.2-1.3); Blood Urea Nitrogen 18 mg/dl (9-20); Creatinine Clearance Estimated 52 mL/min (50-200); Estimated Glomerular Filt Rate 71 ml/min (>60); GFR (African American) 86 ML/MIN (>60)
[2020-01-28 19:00] LABS: Albumin Level 4.5 g/dl (3.5-5.0); Albumin/Globulin Ratio 1.6 (1.1-1.8); Anion Gap 13.3 mEq/L (5-15); Calcium 9.7 mg/dl (8.4-10.2); Carbon Dioxide 31 mmol/L (22.0-30.0); Globulin 2.8 g/dL (1.3-3.2); Glucose 123 mg/dl (74-100); Lipase 89 U/L (23-300); Total Protein,Serum 7.3 g/dl (6.3-8.2)
[2020-01-28 19:55] LABS: Microscopic, Urine URINE MICROSCOPIC (MICROSCOPIC)
[2020-01-28 20:11] LABS: Appearance,Urine CLEAR (Clear); Bilirubin,Urine Negative (Negative); Blood, Urine 1+ (Negative); Color,Urine YELLOW (Yellow); Glucose,Urine (UA) Negative (Negative); Ketones,Urine Negative (Negative); Leukocyte Esterase,Urine Negative (Negative); Nitrate,Urine Negative (Negative); Protein,Urine Negative (Negative); Urobilinogen,Urine 0.2 EU/dl (0.2)
--- NOTE | 2020-01-28 20:36 | PC.NURSE ---
pt to ct
[2020-01-28 20:53] LABS: Bacteria,Urine 1+ /lpf
[2020-01-28 22:09] VITALS: BP 148/68; PULSE 56; RESP 16; TEMP 36.9; O2SAT 97
== END 2020-01-28 22:12 | disposition home or self-care (01) ==
PROVIDERS: Emergency Provider Emergency Medicine; PCP Internal Medicine
DX: K40.20 Bilateral inguinal hernia, without obstruction or gangrene, not specified as recurrent (principal); K57.90 Diverticulosis of intestine, part unspecified, without perforation or abscess without bleeding; N28.1 Cyst of kidney, acquired; I48.20 Chronic atrial fibrillation, unspecified; K21.9 Gastro-esophageal reflux disease without esophagitis; E78.5 Hyperlipidemia, unspecified; I10 Essential (primary) hypertension; Z95.0 Presence of cardiac pacemaker; I25.2 Old myocardial infarction; Z88.2 Allergy status to sulfonamides; Z88.5 Allergy status to narcotic agent
CPT/HCPCS: 74177; 80053; 81001; 83690; 85025; 87086; 96374; 96375; 99283; J2405; Q9967

== ENCOUNTER 2020-04-23 08:02 | Inpatient (IN) | payer MEDICARE, BC, SELFPAY ==
[2020-04-23] VITALS (44 sets, daily range): BP systolic 87–139; BP diastolic 37–84; PULSE 70–100; RESP 10–36; TEMP 36.8–37; O2SAT 92–100; BMI 21.9; BMI 23.1
--- NOTE | 2020-04-23 08:16 | XR_ITS ---
PROCEDURE: XR CHEST PORTABLE Referring Doctor: Brandon Khan Patient Age:85Y CLINICAL HISTORY: nausea, soa COMPARISON: CR CXR2V XR chest 2V from 05/31/2017 CR CXR2V XR chest 2V from 03/15/2018 CR CXR2 XR chest AP from 06/16/2018 FINDINGS: AP supine CXR compared to May 2018 and February 2018; higher contrast technique used on today's study. Prominent cardiomegaly again evident with pacer device. However pulmonary vascularity appears normal to upper normal. No pleural effusions no pneumothorax no obvious CHF. Pacemaker/defibrillator device overlying the left chest with atrial and ventricular leads stable, intact. The pacer device is been revised since. Previous sternotomy, CABG again noted. Also on today's study vague round device projected over the heart at midline of the may reflect overlying defibrillator pad; there is also a pad overlying the left cardiac apex with and left lung base There is slight coarsening markings towards the right CP angle-most likely reflects some mild chronic fibrotic changes accentuated on today's higher contrast technique CXR; doubt but could not exclude a subtle infiltrate but higher contrast IMPRESSION: No definitive acute findings. Slight coarsening of markings at at the lateral right base most likely reflects accentuated chronic fibrotic changes on today's higher contrast CXR. Doubt early infiltrate . Generous cardiomegaly with CABG and pacemaker.. No overt CHF; no pleural effusions Dictated by: Alexander Easton MD 04/23/2020 12:32 Alexander Easton MD in [place] 04/23/2020 12:32
--- NOTE | 2020-04-23 08:17 | ECG_ITS ---
APPROVED REPORT Exam: Resting ECG HR:76 bpm ECG Measurements Heart Rate 76 AXES WY 120 P 88 QRSd 198 QRS 208 QT 482 T 0 QTc 542 Conclusion Demand pacemaker, interpretation is based on intrinsic rhythm Undetermined rhythm Right bundle branch block Possible Lateral infarct, age undetermined Inferior infarct, age undetermined Abnormal ECG Electronically signed by : Kashif Marie, 04/24/2020 06:25:11
--- NOTE | 2020-04-23 08:18 | PC.NURSE ---
contacted cardiology to request pt pacemaker be interpreted per ER MD request
--- NOTE | 2020-04-23 08:19 | PC.NURSE ---
lab at bedside to draw labs
--- NOTE | 2020-04-23 08:26 | HMH.EDGENADL ---
ED Disposition Clinical Impression: V-tach Syncope Qualifiers: Syncope type: unspecified Qualified Code(s): R55 - Syncope and collapse Nausea and vomiting Qualifiers: Vomiting type: unspecified Vomiting Intractability: intractable Qualified Code(s): R11.2 - Nausea with vomiting, unspecified Disposition: Admitted As Inpatient Condition on Discharge: Critical - Critical Care Critical Care Time: Yes Attestation: On , the high probability of a clinically significant, sudden or life threatening deterioration of the following system(s) required my full and direct attention, intervention and personal management. The time I documented below is in addition to time spent performing reported procedures but includes the following listed in this critical care notation. Total Critical Care Time: 45 Vital system(s) involved:: Circulatory Failure, Central Nervous System, Metabolic Failure, Respiratory Failure My critical care processes included: Assessment & monitoring of V/S, Initial and Re-exams, Data Review/Interpretation, Coordinating Care, Medication Orders and management, Documentation Medical Decision Making - Medical Records Medical records reviewed: Yes: I reviewed the patient's medical records. - Bo Inquiry Pt receiving controlled substance: No Vital Signs: 04/23/20 08:02 Temperature 98.3 F Temperature Source Oral Pulse Rate [Apical] 70 Respiratory Rate 20 Blood Pressure [Right Arm] 107/43 L Blood Pressure Mean [Right Arm] 64 Blood Pressure Source [Right Arm] Automatic Cuff Blood Pressure Position [Right Arm] Sitting 02 Sat by Pulse Oximetry 100 Oxygen Delivery Method Room Air - Lab Data Lab Results 04/23/20 08:25: WBC 7.1, RBC 4.90, Hgb 14.3, Hct 43.1, MCV 88.0, MCH 29.2, MCHC 33.2, RDW 14.1, Plt Count 207, MPV 7.7, Neut % (Auto) 80.8 H, Lymph % (Auto) 11.5, [place] % (Auto) 5.8, Eos % (Auto) 1.2, Baso % (Auto) 0.7, Neut # (Auto) 5.7, Lymph # (Auto) 0.8, [place] # (Auto) 0.4, Eos # (Auto) 0.1, Baso # (Auto) 0.1 04/23/20 08:25: Sodium 134 L, Potassium 2.0 L*, Chloride 82 L, Carbon Dioxide 40 H, Anion Gap 14.0, BUN 54 H, Creatinine 1.80 H, Estimated Creat Clear 26, Estimated GFR 36 L, Est GFR ( Amer) 44 L, Glucose 194 H, Calcium 10.2, Total Bilirubin 1.2, Direct Bilirubin 0.2, Conjugated Bilirubin 0.0, Indirect Bilirubin 1.0 H, Unconjugated Bilirubin 1.0, AST 34, ALT 21, Alkaline Phosphatase 97, Troponin I 0.52 H, Total Protein 7.9, Albumin 4.8, Lipase 107 Result diagrams: 04/23/20 08:25 04/23/20 08:25 Orders (Tests/Meds): ED MEDICATIONS Generic Name Dose Route Start Last Admin Trade Name Freq PRN Reason Stop Dose Admin Sodium Chloride 1,000 mls @ 999 mls/hr 04/23/20 08:30 04/23/20 08:19 Sod Chlor 0.9% 1000ml Bag IV 04/23/20 09:30 999 mls/hr .Q1H1M KATHERYN Administration Magnesium Sulfate 2 gm/ Sodium 104 mls @ 100 mls/hr 04/23/20 09:00 Chloride IV 04/23/20 10:02 ONCE ONE Amiodarone HCl 900 mg/ 518 mls @ 33.3 mls/hr 04/23/20 09:15 Dextrose IV 04/24/20 00:48 .[id number] KATHERYN Discontinued Medications Generic Name Dose Route Start Last Admin Trade Name Freq PRN Reason Stop Dose Admin Amiodarone HCl 150 mg/ 103 mls @ 600 mls/hr 04/23/20 08:43 Dextrose IV 04/23/20 08:53 ONCE ONE Ondansetron HCl 4 mg 04/23/20 08:03 04/23/20 08:04 Ondansetron 4mg/2ml Vial IV 04/23/20 08:04 4 mg ONCE ONE Administration Prochlorperazine Edisylate 10 mg 04/23/20 09:13 Prochlorperazine 10mg/2ml Vial IV 04/23/20 09:14 ONCE ONE ORDERS Category Date Time Status Chest XR -- portable [XR chest portable] Stat Exams 04/23/20 08:16 Ordered Full Resp Panel w/COVID ([facility]) Routine Lab 04/23/20 08:46 Ordered Troponin I Q3H Lab 04/23/20 11:15 Ordered Troponin I Q3H Lab 04/23/20 14:15 Ordered - ECG Data Tracing #1 EKG at 0817 shows a paced rhythm with a rate of 76. There are wide QRSs with a bizarre pattern however it is consistent with p
[2020-04-23 08:43] LABS: Basophils # 0.1 K/mm3 (0-0.2); Basophils % 0.7 % (0.1-2.0); Eosinophils # 0.1 K/mm3 (0.0-0.4); Eosinophils % 1.2 % (0.1-12.0); Hematocrit 43.1 % (42.0-52.0); Hemoglobin 14.3 g/dL (14.1-18.0); Lymphocytes # 0.8 K/mm3 (0.7-4.5); Lymphocytes % 11.5 % (10-50); Mean Corpuscular HGB Conc 33.2 g/dL (31.8-35.4); Mean Corpuscular Hemoglobin 29.2 pg (27.0-31.2); Mean Platelet Volume 7.7 fl (7.4-10.4); Monocytes # 0.4 K/mm3 (0.1-1.0); Monocytes % 5.8 % (1.7-9.3); Neutrophils # 5.7 K/mm3 (1.8-7.8); Neutrophils % 80.8 % (37.0-80.0); Platelet Count 207 K/mm3 (142-424); Red Cell Distribution Width 14.1 % (11.5-17.5); White Blood Count 7.1 K/mm3 (4.8-10.8)
--- NOTE | 2020-04-23 08:43 | PC.NURSE ---
0841- In room with pt, had just done orthostatic blood pressures on pt. sat pt back up in bed, pt went unresponsive, pt note to be vtach on the monitor. Alerted ER MD, pt defibrilator shocked him. Approx 15 seconds after defibrillator shocked pt, pt open his eyes, began dry heaving soon after that. ER MD at BS, ordered another EKG, pt moved to a trauma room for closer monitoring. ER MD gave verbal orders for Amiodarone 150 mg IV push now. Alerted cardiology office that pt pacemaker needed to be interpreted as soon as they could get staff over to do so and we needed a cardiology consult on pt. Pt hooked up to [facility] for closer monitoring-ER MD at BS 0849- pt in VTACH again at this time pacemaker delivered shock. Pt alert approx 10 seconds after shock. ER MD discussed with pt his code status, pt states he is okay with chest compressions, shock and medications but does want to be intubated. 0850-cardiology staff arrived at BS approx to interpret pt pacemaker. approx 0852- HORTENCIA isidro for cardiology at BS, she contacted by phone. Cardiology staff remained at BS to continue to interpret pacemaker/defibrillator. ER MD gave orders for Magnesium, Potassium and Amiodarone drip. Medications administered per MAY. ER staff remain at BS monitoring pt. Runs of Vtach and shocks delivered via defibrillator caught on monitor at: 0849 0850 [phone] 0900 0902 [phone] 0911 0913 0927 0929 1012
[2020-04-23 08:47] LABS: Alanine Aminotransferase 21 U/L (12-78); Albumin Level 4.8 g/dl (3.5-5.0); Alkaline Phosphatase 97 U/L (38-126); Aspartate Amino Transferase 34 U/L (17-59); Bilirubin,Direct 0.2 mg/dl (0.0-0.4); Bilirubin,Total 1.2 mg/dl (0.2-1.3); Blood Urea Nitrogen 54 mg/dl (9-20); Calcium 10.2 mg/dl (8.4-10.2); Chloride 82 mmol/L (98-107); Creatinine Clearance Estimated 26 mL/min (50-200); Estimated Glomerular Filt Rate 36 ml/min (>60); GFR (African American) 44 ML/MIN (>60); Glucose 194 mg/dl (74-100); Lipase 107 U/L (23-300); Sodium 134 mmol/L (136-145); Total Protein,Serum 7.9 g/dl (6.3-8.2)
[2020-04-23 08:53] LABS: Carbon Dioxide 40 mmol/L (22.0-30.0)
--- NOTE | 2020-04-23 08:54 | ECG_ITS ---
APPROVED REPORT Exam: Resting ECG HR:225 bpm ECG Measurements Heart Rate 225 AXES DE 116 P -74 QRSd 78 QRS -46 QT 138 T 268 QTc 267 Conclusion Poor data quality, interpretation may be adversely affected Undetermined rhythm Left axis deviation Low voltage QRS Inferior infarct, age undetermined Anterior infarct, possibly acute T wave abnormality, consider lateral ischemia ACUTE VA Abnormal ECG Electronically signed by : Kashif Marie, 04/24/2020 06:24:55
[2020-04-23 09:00] LABS: Troponin I 0.52 ng/ml (0.00-0.034)
--- NOTE | 2020-04-23 09:06 | PC.NURSE ---
Neus being paged.
--- NOTE | 2020-04-23 09:09 | PC.NURSE ---
ER MD Khan spoke with pharmacist r/t potassium maximum dosage at a time and maximum rate for running potassium. States can do a run of 20Meq of potassium over 1 hour and can infuse 2 runs of potassium 20 meq at a time. Additional bag of potassium started on pt and increased rate of drip to 100 mL/hr to infuse over 1 hour.
--- NOTE | 2020-04-23 09:44 | PC.NURSE ---
Tiffany Spivey RN took critical lab values around 0900 on patient. Potassium of 2.0, CO2 of 40, Troponin of 0.52
--- NOTE | 2020-04-23 10:05 | PC.NURSE ---
pt daughter at BS
--- NOTE | 2020-04-23 10:26 | HMH.CNCARD ---
History of Present Illness Consult date: 04/23/20 Requesting physician: Benitez Rivera Consult reason: shortness of breath Chief complaint: Syncope/DEfib shock Additional Medical History:: 1. Ventricular tachycardia (04/23/20) a. AICD shocks occurring. b. Syncope 2. Atrial fibrillation a. A/C Xarelto 3. Ischemic cardiomyopathy (04/23/20) 4. Nausea (04/23/20) a. Prostate cancer 5. Coronary artery disease a. Hx of CABG 6. Essential hypertension 7. Moderate pulmonary hypertension a. Echocardiogram 2018 8. Hypokalemia (04/23/20) a. 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 Patient is alert and oriented. Patient stated he started having nausea and increased shortness of breath the night before. Patient is currently being treated for prostate cancer. Patient stated he has been shocked a few times this morning. Upon arrival in the emergency room patient was noted to have ventricular tachycardia in which a shock was provided for him by his AICD. While assessing the patient in the ED, patient is AICD has gone off at least 20 times, shocking him. Patient remains alert and oriented. Patient denies chest pain, tightness or pressure. No swelling noted of the lower extremities. AICD had been placed a few years ago due to ischemic cardiomyopathy. Patient's last download on his AICD, VT episodes were noted in his beta-chilo was increased. Patient was due for follow-up in the cardiology office this month. Patient is on Xarelto for his history of atrial fibrillation. Patient has history of coronary artery disease. Last heart catheterization was 2017 which revealed medical management. Patient does have history of CABG. Last echocardiogram showed moderate pulmonary hypertension (2018). 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 Patient had been referred to Dr. Aiken at for a noninvasive approach as the patient would not be a good candidate for an invasive procedure. Ischemic cardiomyopathy (EF 20%, echo, 10/2018 with mild MR, AR and moderate TR with RVSP of 67 mmHg) with NUTRITION INTERN-D upgrade, 06/2018, with last download earlier this month showing heart logic stable at 8 with no new ventricular events. CKD, stage II-III, stable. 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 Chronic systolic congestive heart failure, stage III. Initial ED labs revealed potassium 2.0. Troponin was elevated at 0.54 this may be due to being shocked by his AICD. ED physician ordered potassium drip along with magnesium drip. Recommended starting amiodarone drip due to ventricular arrhythmia. Amiodarone drip was started. Patient stated that he is a DNI and does not wish to be intubated. Discussed plan of care with Dr. Kathleen. Will obtain echocardiogram to assess LV function and valve status. Continue infusing the potassium and magnesium drips due to electrolyte imbalance. Continue infusing the amiodarone drip due to the ventricular arrhythmia. Continue to monitor vital signs. Please notify cardiology of any change in pattern patient status. Thank you for allowing cardiology to participate in the care of this patient. I [facility] History I have reviewed the patient's past medical history: Yes Medical History: Reports:: Atrial Fibrillation, Cancer (ESOPHAGUS), Cardiomyopathy, Congestive Heart Failure, Coronary Artery Disease, Gastroesophageal Reflux Disease(GERD), Hyperlipidemia, Hypertension, Internal Pacemaker, Lung Disease, Myocardial Infarction Denies:: Diabetes Mellitus Type 1, Diabetes Mellitus Type 2, MRSA, Seizures *Have you ever received a pneumonia vaccine?: No *Have you received a flu vaccine this season?: No Other Medical History: Reports: Dianne
[2020-04-23 11:13] LABS: Coronavirus 19 IgG Antibody Negative (Negative); Coronavirus 19 IgM Antibody Negative (Negative)
[2020-04-23 11:21] LABS: Troponin I 3.87 ng/ml (0.00-0.034)
--- NOTE | 2020-04-23 11:37 | CA_ITS ---
APPROVED REPORT EXAM: Comprehensive 2D, Doppler, and color-flow Echocardiogram Area Attendant: Nesha Freed RCS, RVS Ht: 5 ft 6 in Wt: 136lbs BSA: 1.70 BP: 107/43 mmHg Indications: Dilated CM, AFIB, CABG, CAD,PHTN Echo Enhancing Agent Comments: LIMITED WINDOW DUE PACER PAD AND PACEMAKER 2D Dimensions IVSd 1.05 cm M: 0.6-1.2 LVEF (Visual) 12.40 % PWd 0.88 cm M: 0.6 - 1.2 LVDd 7.34 cm M: 4.2 - 5.9 LVDs 6.92 cm M: 2.5 - 4.0 LVOT 1.96 cm (M/F) 1.5-2.5 M-Mode Dimensions LA Diam 4.12 cm (1.9-4.0) Ao Diam 3.05 cm (2.0-3.7) EPSs 3.66 cm LV Diastology E Decel Time 260.00 (160-240 msec) MED E' 4.00 (< 7 cm/sec) E'/MED E' Ratio 24.37 (>14) LAT E' 4.90 (<10 cm/sec) LAT A' 7.20 cm/s E/LAT E' Ratio 19.90 (>14) Aortic Valve AoV Peak Vic. 250.00 (50-130 cm/s) AI PHT 722.00 ms AO Peak GR. 24.90 mmHg AO Mean GR. 10.70 (<5 mmHg) AO VTI 40.17 (18-25 cm) Mitral Valve MV E Max Vic. 98.00 (40-130 cm/s) MV Decel. Time 260.00 (160-240 ms) MV PHT 76.00 ms Pulmonary Valve PV Peak Velocity 75.00 (50-150 cm/s) Tricuspid Valve TR P. Velocity 258.00 cm/s RAP Estimate 10.00 mmHg RVSP 36.60 mmHg Left Ventricle Technically difficult study because of the patient factors and poor acoustic windows, Definity contrast was utilized to delineate the endocardial surfaces. Left atrium is moderately enlarged, left ventricle is moderately dilated, there is severe reduced left ventricular systolic function, visually estimated ejection fraction approximately 15 to 20%, inferior wall is akinetic, rest of the myocardium segments are markedly hypokinetic. There is no left ventricular thrombus seen. Diastolic parameters are inconclusive. Right Ventricle Right atrium and right ventricle mildly enlarged with normal contractility there is a pacemaker lead seen right atrium and right ventricle. Aortic Valve Aortic valve is thickened and calcified with mild aortic stenosis, there is mild aortic insufficiency. Mitral Valve Mitral valve has mitral calcification, leaflets are minimally thickened, there is mild mitral regurgitation. Tricuspid Valve Tricuspid valve is grossly normal, there is mild tricuspid regurgitation, tricuspid regurgitation jet velocity is inadequate for calculation of the right ventricular systolic pressure. Pulmonic Valve Pulmonic valve is poorly visualized. Great Vessels Aortic root is normal size. Pericardium No significant pericardial effusion noted. Conclusion 1. Moderately enlarged left atrium, moderately dilated left ventricle, severe range left ventricular systolic function, visually estimated ejection fraction 15 to 20% with segmental wall motion abnormality described above, Definity contrast was utilized to delineate the endocardial surfaces, there is no left ventricular thrombus seen. Diastolic parameters are inconclusive. 2. Thickened and calcified aortic valve with mild aortic stenosis and mild aortic insufficiency. 3. Mild mitral and tricuspid regurgitation. 4. No significant pericardial effusion noted. Electronically signed by : Manuel Mcdonald, 04/23/2020 17:50:03
--- NOTE | 2020-04-23 11:58 | PC.NURSE ---
CV lab staff at
--- NOTE | 2020-04-23 13:10 | PC.NURSE ---
notified ER MD webber of sbp 97, ER to continue to monitor pt.
--- NOTE | 2020-04-23 15:33 | PC.NURSE ---
Amiodarone drip decreased to 16.7 mL/hr at this time per instructions on pt MAY.
[2020-04-23 15:41] LABS: Troponin I 4.34 ng/ml (0.00-0.034)
--- NOTE | 2020-04-23 15:57 | PC.NURSE ---
Assisted pt will turning onto R side at this time. Assisted pt with oral care at this time also r/t pt NPO status. Pt states no needs at this time
--- NOTE | 2020-04-23 16:30 | PC.NURSE ---
contacted second floor to check on status of bed availability. agent licensing clerk states pt assigned room is now empty they have to get it cleaned. States they will notify me when room is ready.
--- NOTE | 2020-04-23 16:40 | HMH.HP ---
*Admission Date: 04/23/20 *Chief complaint: Nausea *History of present illness: 85-year-old male patient presented to the emergency room after receiving shocks from his defibrillator. He reports he was sleeping in bed was awakened after being defibrillated, reports he became dizzy after getting up from the bed. He also reports nausea, lightheadedness, and increased fatigue for the past several days, he denies any fever/chills/body aches or nausea/vomiting/diarrhea. He also denies chest pain or shortness of breath Lab work in the emergency department white blood cell count normal, H/H stable at 14.3/43.1. Sodium 134 potassium extremely low at 2.0 BUN 54 and creatinine 1.8 In the emergency department blood pressure has been 100-1 teens systolic pulse of 70 and oxygen saturations 98-100 on room air. He has been loaded with amiodarone 150 mg x 2 and an amiodarone drip was started, he is also receiving potassium and magnesium as well as IV fluids. Cardiology has been consulted Emergency department staff patient has received several defibrillations from [facility], cardiology aware 04/23/2020 chest x-ray: IMPRESSION: No definitive acute findings. Slight coarsening of markings at at the lateral right base most likely reflects accentuated chronic fibrotic changes on today's higher contrast CXR. Doubt early infiltrate . Generous cardiomegaly with CABG and pacemaker.. No overt CHF; no pleural effusions Dictated by: Jemma, 85-year-old male patient lying in bed respirations easy even oxygen on at 2 L per nasal cannula oxygen saturations currently 99%. He denies any chest pain or shortness of breath. Potassium magnesium and amiodarone all infusing. Daughter at bedside patient's condition explained to daughter she verbalizes understanding. Patient awaiting bed on floor to be transferred he denies any concerns/needs at this moment [facility] History I have reviewed the patient's past medical history: Yes Medical History: Reports:: Atrial Fibrillation, Cancer (ESOPHAGUS), Cardiomyopathy, Congestive Heart Failure, Coronary Artery Disease, Gastroesophageal Reflux Disease(GERD), Hyperlipidemia, Hypertension, Internal Pacemaker, Lung Disease, Myocardial Infarction Denies:: Diabetes Mellitus Type 1, Diabetes Mellitus Type 2, MRSA, Seizures *Have you ever received a pneumonia vaccine?: Yes *Have you received a flu vaccine this season?: Yes Other Medical History: Reports: Arthritis, Cataracts. Denies: Blood Transfusion Reaction Laterality Cases: Bilateral: Tonsillectomy Other Surgeries: Yes: Angioplasty, CABG, Cardiac Catheterization, Coronary Stent, EGD, Hernia Repair, Pacemaker, Other Amputation: No Fractures: No - *Social History Last grade of school completed: Some college Smoking Status: Never smoker Alcohol Intake: never Substance Use Type: denies use *Occupational Status:: retired Housing: house Household Members: family *Travel in the last 8 weeks: None Family Hx:: Coronary Artery Disease, Diabetes, Heart Attack Review of Systems - Review of Systems Review of systems:: pertinent systems reviewed and negative unless documented below - Constitutional Reports weakness, Denies anorexia, Denies body ache(s) - Eyes Denies blind spots, Denies blurry vision - ENT Reports dizziness - *Cardiovascular Reports shortness of breath, Denies chest pain - *Respiratory Reports shortness of breath, Denies chest congestion - *Gastrointestinal Denies abdominal pain, Denies change in bowel habits - *Genitourinary Denies difficulty urinating, Denies painful urination - *Musculoskeletal Denies joint pain, Denies joint swelling - Integumentary/Breasts Denies changing lesions, Denies itching - *Neurologic Reports fainting, Reports weakness - Psychiatric Denies lack of enjoyment, Denies hearing things others do not hear - Endocrine Denies cold intolerance, Denies heat intolerance - Hematologic/Lymphatic Denies easy bleeding, Den
--- NOTE | 2020-04-23 16:56 | HMH.PHAVTE ---
[facility] Pharmacy VTE Monitoring - Patient Demographics Admission date: 04/23/20 Report Date: 04/23/20 Time: 16:56 Allergies/Adverse Reactions: Patient Allergies milk Allergy (Intermediate, Verified 01/29/20 14:19) Diarrhea codeine Allergy (Unknown, Verified 01/29/20 14:19) NA-NAUSEA quinidine Allergy (Unknown, Verified 01/29/20 14:19) FEVER, SEIZURES Sulfa (Sulfonamide Antibiotics) Allergy (Unknown, Verified 01/29/20 14:19) I-RASH Height: 1.68 m Weight: 61.689 kg Patient Problems: Current Active Problems (Last Updated 11/16/18 @ 10:11 by Dodie Galan RN) V-tach (Acute) Syncope (Acute) Nausea and vomiting (Acute) Chronic systolic congestive heart failure, NYHA class 3 (Chronic) NYHA class 2 heart failure with reduced ejection fraction (Acute) Cardiomyopathy (Chronic) CAD (coronary artery disease) (Chronic) Atrial fibrillation (Chronic) Dyspnea (Acute) 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 use of anticoagulant therapy (Chronic) History of coronary artery bypass graft (Chronic) Automatic implantable cardiac defibrillator in situ (Chronic) Hyperlipidemia (Chronic) Hypertensive heart disease (Chronic) - VTE Risk Labs: VTE Related Lab Results Hgb 14.3 g/dL (14.1-18.0) 04/23/20 08:25 Hct 43.1 % (42.0-52.0) 04/23/20 08:25 Plt Count 207 K/mm3 (142-424) 04/23/20 08:25 BUN 54 mg/dl (9-20) H 04/23/20 08:25 Creatinine 1.80 mg/dl (0.66-1.25) H 04/23/20 08:25 Estimated Creat Clear 26 mL/min (50-200) 04/23/20 08:25 Was VTE Risk Assessment Performed: Yes VTE Score: 2 VTE Risk Level: Very Low Risk Clinical Trial Participant: No - Prophylaxis VTE Prophylaxis Ordered?: Yes Types of VTE Prophylaxis: TEDS Knee High
--- NOTE | 2020-04-23 17:10 | PC.NURSE ---
report given to kelsie gneao at this time waiting on pt room to be cleaned notified lab of new orders on pt.
--- NOTE | 2020-04-23 17:57 | PC.NURSE ---
patient arrived to floor by stretcher by ed staff
[2020-04-23 18:08] LABS: Chloride 91 mmol/L (98-107); Sodium 138 mmol/L (136-145)
[2020-04-23 18:11] LABS: Blood Urea Nitrogen 42 mg/dl (9-20); Creatinine Clearance Estimated 36 mL/min (50-200); Estimated Glomerular Filt Rate 52 ml/min (>60); GFR (African American) 63 ML/MIN (>60); Glucose 131 mg/dl (74-100); Phosphorous 4.2 mg/dl (2.5-4.5); Potassium 2.2 mmoL/L (3.5-5.1)
[2020-04-23 18:12] LABS: Magnesium 2.6 mg/dl (1.6-2.3)
[2020-04-23 18:18] LABS: Calcium 8.8 mg/dl (8.4-10.2)
[2020-04-23 18:50] LABS: Anion Gap 10.2 mEq/L (5-15); Carbon Dioxide 39 mmol/L (22.0-30.0)
[2020-04-23 19:51] LABS: Microscopic, Urine URINE MICROSCOPIC (MICROSCOPIC)
[2020-04-23 19:55] LABS: Appearance,Urine CLEAR (Clear); Bilirubin,Urine Negative (Negative); Blood, Urine TRACE-I (Negative); Color,Urine YELLOW (Yellow); Glucose,Urine (UA) Negative (Negative); Ketones,Urine Negative (Negative); Leukocyte Esterase,Urine Negative (Negative); Nitrate,Urine Negative (Negative); PH,Urine 6.5 (5.0-8.5); Protein,Urine Negative (Negative); Urobilinogen,Urine 0.2 EU/dl (0.2)
[2020-04-23 21:08] LABS: RBC,Urine Occasional #/hpf (0-3)
[2020-04-24] VITALS (10 sets, daily range): BP systolic 85–113; BP diastolic 42–60; PULSE 60–79; RESP 16–20; TEMP 36.6–36.8; O2SAT 90–98; BMI 21.7
--- NOTE | 2020-04-24 05:03 | PC.NURSE ---
no changes. removed iv on left arm this shift. pt is alert and oriented. bp is 90/49, hr 70 and paced, 94 on 1LNC, afebrile. dickens draining clear yellow urine. iv on right side patent and infusing amnio at 16.7 and ns at 50 at this time. call light in reach. will continue to monitor pt condition
--- NOTE | 2020-04-24 05:57 | PC.NURSE ---
amnio drip completed
[2020-04-24 06:51] LABS: Basophils % 0.2 % (0.1-2.0); Eosinophils # 0.1 K/mm3 (0.0-0.4); Eosinophils % 0.8 % (0.1-12.0); Hematocrit 37.1 % (42.0-52.0); Lymphocytes # 0.7 K/mm3 (0.7-4.5); Lymphocytes % 7.2 % (10-50); Mean Corpuscular HGB Conc 33.9 g/dL (31.8-35.4); Mean Corpuscular Hemoglobin 30.2 pg (27.0-31.2); Mean Corpuscular Volume 89.1 fl (80-94); Mean Platelet Volume 8.4 fl (7.4-10.4); Monocytes # 0.7 K/mm3 (0.1-1.0); Monocytes % 6.6 % (1.7-9.3); Neutrophils # 8.8 K/mm3 (1.8-7.8); Neutrophils % 85.2 % (37.0-80.0); Platelet Count 163 K/mm3 (142-424); Red Blood Count 4.16 M/mm3 (4.60-6.20); Red Cell Distribution Width 14.6 % (11.5-17.5); White Blood Count 10.4 K/mm3 (4.8-10.8)
[2020-04-24 07:04] LABS: Blood Urea Nitrogen 28 mg/dl (9-20); Chloride 93 mmol/L (98-107); Creatinine Clearance Estimated 47 mL/min (50-200); Estimated Glomerular Filt Rate 71 ml/min (>60); GFR (African American) 86 ML/MIN (>60); Glucose 117 mg/dl (74-100); Sodium 139 mmol/L (136-145)
[2020-04-24 07:11] LABS: Anion Gap 9.3 mEq/L (5-15); Carbon Dioxide 39 mmol/L (22.0-30.0)
[2020-04-24 07:19] LABS: Potassium 2.3 mmoL/L (3.5-5.1)
[2020-04-24 07:35] LABS: Hemoglobin 12.6 g/dL (14.1-18.0)
[2020-04-24 07:36] LABS: MANUAL DIFFERENTIAL MANUAL DIFFERENTIAL (MANUAL DIFF)
--- NOTE | 2020-04-24 07:48 | HMH.PNCARD ---
Subjective Date: 04/24/20 Time: 07:48 Principal diagnosis: V. tach, recurrent with AICD firings, Hypokalemia Interval history: 85-year-old white male in bed in no acute distress. Still feels very weak and dizzy but no chest pain at this time. Amiodarone infusion finished earlier this morning. Telemetry shows paced rhythm with frequent PVCs but no recurrent V. tach overnight. Potassium 2.3 this morning after receiving 60 mEq p.o. and another 30 mEq IV. Magnesium level is 2.7. Exam Vital signs and Labs for Last 24 Hours: Temp Pulse Resp BP Pulse Ox 98.3 F 79 17 88/42 L 94 L 04/24/20 04:00 04/24/20 06:00 04/24/20 06:00 04/24/20 06:00 04/24/20 06:00 Laboratory Results - last 24 hr 04/23/20 08:25: WBC 7.1, RBC 4.90, Hgb 14.3, Hct 43.1, MCV 88.0, MCH 29.2, MCHC 33.2, RDW 14.1, Plt Count 207, MPV 7.7, Neut % (Auto) 80.8 H, Lymph % (Auto) 11.5, [place] % (Auto) 5.8, Eos % (Auto) 1.2, Baso % (Auto) 0.7, Neut # (Auto) 5.7, Lymph # (Auto) 0.8, [place] # (Auto) 0.4, Eos # (Auto) 0.1, Baso # (Auto) 0.1 04/23/20 08:25: Sodium 134 L, Potassium 2.0 L*, Chloride 82 L, Carbon Dioxide 40 H, Anion Gap 14.0, BUN 54 H, Creatinine 1.80 H, Estimated Creat Clear 26, Estimated GFR 36 L, Est GFR ( Amer) 44 L, Glucose 194 H, Calcium 10.2, Total Bilirubin 1.2, Direct Bilirubin 0.2, Conjugated Bilirubin 0.0, Indirect Bilirubin 1.0 H, Unconjugated Bilirubin 1.0, AST 34, ALT 21, Alkaline Phosphatase 97, Troponin I 0.52 H, Total Protein 7.9, Albumin 4.8, Lipase 107 04/23/20 08:25: SARS-CoV-2 IgG Ab (Rapid) Negative, SARS-CoV-2 IgM Ab (Rapid) Negative 04/23/20 09:14: Urine Color Yellow, Urine Appearance Clear, Urine pH 6.5, Ur Specific [place] 1.010, Urine Protein Negative, Urine Glucose (UA) Negative, Urine Ketones Negative, Urine Blood Trace-i, Urine Nitrate Negative, Urine Bilirubin Negative, Urine Urobilinogen 0.2, Ur Leukocyte Esterase Negative, Urine RBC Occasional, Urine WBC 3-5, Hyaline Casts 5-10 04/23/20 10:46: Troponin I 3.87 H 04/23/20 14:56: Troponin I 4.34 H 04/23/20 17:28: Sodium 138, Potassium 2.2 L*, Chloride 91 L, Carbon Dioxide 39 H, Anion Gap 10.2, BUN 42 H, Creatinine 1.30 H D, Estimated Creat Clear 36, Estimated GFR 52 L, Est GFR ( Amer) 63 D, Glucose 131 H D, Calcium 8.8 D, Phosphorus 4.2, Magnesium 2.6 H 04/24/20 05:57: WBC 10.4 D, RBC 4.16 L, Hgb 12.6 L D, Hct 37.1 L, MCV 89.1, MCH 30.2, MCHC 33.9, RDW 14.6, Plt Count 163, MPV 8.4, Neut % (Auto) 85.2 H, Lymph % (Auto) 7.2 L, [place] % (Auto) 6.6, Eos % (Auto) 0.8, Baso % (Auto) 0.2, Neut # (Auto) 8.8 H, Lymph # (Auto) 0.7, [place] # (Auto) 0.7, Eos # (Auto) 0.1, Baso # (Auto) 0.0 04/24/20 05:57: Sodium 139, Potassium 2.3 L*, Chloride 93 L, Carbon Dioxide 39 H, Anion Gap 9.3, BUN 28 H D, Creatinine 1.00 D, Estimated Creat Clear 47, Estimated GFR 71, Est GFR ( Amer) 86 D, Glucose 117 H, Calcium 9.0 I & O for Last 24 hours: Intake & Output 04/21/20 04/22/20 04/23/20 04/24/20 11:59 11:59 11:59 11:59 Intake Total 1245 / 1245 Output Total 1380 / 1380 Balance -135 / -135 Weight 136 lb 135 lb 8 oz - Constitutional no acute distress - *Routine Respiratory Exam Present: CTA bilaterally - *Routine Cardiovascular Exam Present: RRR - *Routine Extremities Exam Absent: cyanosis, clubbing, edema - *Routine Neurological Exam Present: alert, oriented X3 Progress Note: A&P (1) Nonsustained ventricular tachycardia Status: Resolved (2) Nausea and vomiting Status: Acute (3) Syncope Status: Acute (4) V-tach Status: Acute (5) Dyspnea Status: Acute (6) NYHA class 2 heart failure with reduced ejection fraction Status: Acute (7) Atrial fibrillation Status: Chronic (8) Automatic implantable cardiac defibrillator in situ Status: Chronic (9) CAD (coronary artery disease) Status: Chronic (10) Cardiomyopathy Status: Chronic (11) Chronic systolic congestive heart failure, NYHA class 3 Status: Chronic (12) Hi
[2020-04-24 09:36] LABS: Eosinophils % 2 % (0-3); Lymphocytes % 7 % (10-50); Monocytes % 5 % (2-9); Neutrophils % 86 % (42-76); Platelet Estimate Normal; RBC Morphology Normal; Total Cells Counted 100
--- NOTE | 2020-04-24 10:22 | HMH.ACPN2 ---
Internal Medicine - PN: Subj *Date: 04/24/20 *Time: 08:15 Interval history: pt states he is doing much better today, no more shocks since yesterday per pt Exam Vital signs and Labs for Last 24 Hours: Temp Pulse Resp BP Pulse Ox 98.1 F 73 16 113/52 L 95 04/24/20 08:00 04/24/20 08:00 04/24/20 08:00 04/24/20 08:00 04/24/20 08:00 Laboratory Results - last 24 hr 04/23/20 08:25: SARS-CoV-2 IgG Ab (Rapid) Negative, SARS-CoV-2 IgM Ab (Rapid) Negative 04/23/20 09:14: Urine Color Yellow, Urine Appearance Clear, Urine pH 6.5, Ur Specific [place] 1.010, Urine Protein Negative, Urine Glucose (UA) Negative, Urine Ketones Negative, Urine Blood Trace-i, Urine Nitrate Negative, Urine Bilirubin Negative, Urine Urobilinogen 0.2, Ur Leukocyte Esterase Negative, Urine RBC Occasional, Urine WBC 3-5, Hyaline Casts 5-10 04/23/20 10:46: Troponin I 3.87 H 04/23/20 14:56: Troponin I 4.34 H 04/23/20 17:28: Sodium 138, Potassium 2.2 L*, Chloride 91 L, Carbon Dioxide 39 H, Anion Gap 10.2, BUN 42 H, Creatinine 1.30 H D, Estimated Creat Clear 36, Estimated GFR 52 L, Est GFR ( Amer) 63 D, Glucose 131 H D, Calcium 8.8 D, Phosphorus 4.2, Magnesium 2.6 H 04/24/20 05:57: WBC 10.4 D, RBC 4.16 L, Hgb 12.6 L D, Hct 37.1 L, MCV 89.1, MCH 30.2, MCHC 33.9, RDW 14.6, Plt Count 163, MPV 8.4, Neut % (Auto) 85.2 H, Lymph % (Auto) 7.2 L, [place] % (Auto) 6.6, Eos % (Auto) 0.8, Baso % (Auto) 0.2, Neut # (Auto) 8.8 H, Lymph # (Auto) 0.7, [place] # (Auto) 0.7, Eos # (Auto) 0.1, Baso # (Auto) 0.0, Total Counted 100, Neutrophils % (Manual) 86 H, Lymphocytes % (Manual) 7 L, Monocytes % (Manual) 5, Eosinophils % (Manual) 2, Platelet Estimate Normal, RBC Morphology Normal 04/24/20 05:57: Sodium 139, Potassium 2.3 L*, Chloride 93 L, Carbon Dioxide 39 H, Anion Gap 9.3, BUN 28 H D, Creatinine 1.00 D, Estimated Creat Clear 47, Estimated GFR 71, Est GFR ( Amer) 86 D, Glucose 117 H, Calcium 9.0 I & O for Last 24 hours: Intake & Output 04/21/20 04/22/20 04/23/20 04/24/20 11:59 11:59 11:59 11:59 Intake Total 1485 / 1485 Output Total 1380 / 1380 Balance 105 / 105 Weight 136 lb 135 lb 8 oz - Constitutional no acute distress, thin - *Routine HEENT Exam Head: Present: normocephalic Eye: Present: PERRL ENT: Present: mucous membranes moist - *Routine Neck Exam Present: supple. Absent: lymphadenopathy - *Routine Respiratory Exam Present: CTA bilaterally - *Routine Cardiovascular Exam Present: RRR Comments: pacemaker - *Routine Abdominal Exam Present: soft, normoactive bowel sounds. Absent: tenderness - *Routine Extremities Exam Present: normal capillary refill. Absent: cyanosis, clubbing, edema - *Routine Skin Exam Present: warm. Absent: rash - *Routine Neurological Exam Present: alert, oriented X3 - Routine Psychiatric Exam Present: normal affect Assessment and Plan (1) Nonsustained ventricular tachycardia Status: Resolved Category: Medical Code(s): I47.2 - Ventricular tachycardia (2) Nausea and vomiting Start date: 04/23/20 Status: Acute Qualifiers: Vomiting type: unspecified Vomiting Intractability: intractable Qualified Code(s): R11.2 - Nausea with vomiting, unspecified Category: Medical Code(s): R11.2 - Nausea with vomiting, unspecified (3) Syncope Status: Acute Qualifiers: Syncope type: unspecified Qualified Code(s): R55 - Syncope and collapse Category: Medical Code(s): R55 - Syncope and collapse (4) V-tach Status: Acute Category: Medical Code(s): I47.2 - Ventricular tachycardia (5) Dyspnea Status: Acute Qualifiers: Dyspnea type: dyspnea on exertion Qualified Code(s): R06.00 - Dyspnea, unspecified Category: Medical Code(s): R06.00 - Dyspnea, unspecified (6) NYHA class 2 heart failure with reduced ejection fraction Status: Acute Category: Medical Code(s): I50.20 - Unspecified systolic (congestive) heart failure (7) Atrial f
--- NOTE | 2020-04-24 20:16 | PC.NURSE ---
PT IS RESTING IN BED. NO COMPLAINTS OF CHEST PAIN OR SOA. PACED ON THE MONITOR. PT HAS HAD SEVERAL LOW BP'S T/O THE SHIFT BUT ACCORDING TO PT HE STATES HIS BP HAS ALWAYS BEEN LOW. WAS OKAY WITH PT BEING TRANSFERRED OUT OF STEP DOWN. PT REQUESTED A PUREED DIET B/C BE HAS SOME ISSUES WITH SWALLOWING. NPO AFTER MIDNIGHT FOR ELSA CONSULT IN THE MORNING. PT TOOK HIS PO POTASSIUM CRUSHED IN APPLESAUCE THIS SHIFT AND 1 RUN OF IV POTASSIUM. TOLERATED DRINKING ENSURE. SKIN C/D/I. WILL CONTINUE TO MONITOR.
[2020-04-25] VITALS (18 sets, daily range): BP systolic 86–118; BP diastolic 50–66; PULSE 70–78; RESP 16–19; TEMP 36.6–37.1; O2SAT 95–100; BMI 22.6
--- NOTE | 2020-04-25 03:29 | PC.NURSE ---
NO ACUTE CHANGES. PT PACED ON TELE. PT RECEIVED BATH TONIGHT. VSS. WILL CONT. TO MONITOR.
[2020-04-25 06:16] LABS: Basophils % 0.3 % (0.1-2.0); Eosinophils # 0.1 K/mm3 (0.0-0.4); Eosinophils % 1.7 % (0.1-12.0); Hematocrit 36.4 % (42.0-52.0); Hemoglobin 12.2 g/dL (14.1-18.0); Lymphocytes # 0.9 K/mm3 (0.7-4.5); Lymphocytes % 10.3 % (10-50); Mean Corpuscular HGB Conc 33.5 g/dL (31.8-35.4); Mean Corpuscular Hemoglobin 30.3 pg (27.0-31.2); Mean Corpuscular Volume 90.5 fl (80-94); Mean Platelet Volume 8.3 fl (7.4-10.4); Monocytes # 0.6 K/mm3 (0.1-1.0); Monocytes % 6.7 % (1.7-9.3); Neutrophils # 6.8 K/mm3 (1.8-7.8); Neutrophils % 80.9 % (37.0-80.0); Platelet Count 150 K/mm3 (142-424); Red Blood Count 4.02 M/mm3 (4.60-6.20); Red Cell Distribution Width 14.6 % (11.5-17.5); White Blood Count 8.4 K/mm3 (4.8-10.8)
[2020-04-25 06:26] LABS: Anion Gap 7.3 mEq/L (5-15); Blood Urea Nitrogen 16 mg/dl (9-20); Carbon Dioxide 39 mmol/L (22.0-30.0); Chloride 95 mmol/L (98-107); Creatinine Clearance Estimated 49 mL/min (50-200); Estimated Glomerular Filt Rate 92 ml/min (>60); GFR (African American) 111 ML/MIN (>60); Glucose 109 mg/dl (74-100); Potassium 3.3 mmoL/L (3.5-5.1); Sodium 138 mmol/L (136-145)
--- NOTE | 2020-04-25 09:45 | SW/DCPLANNER ---
I have spoke with patients daughter regarding discharge plans. Daughter stated that patient resides at home with her and her . Daughter stated that patient does well with everything with exception of meals. Daughter stated that patient generally only tolerates soups at home. Daughter stated that she wants patient to return home at time of discharge, does not use nor need DME at home and daughter is not interested in home health services at time of discharge due to COVID pandemic and not wanting anyone in the household. Daughter stated there are no needs for this patient. I have informed daughter that patient could be ready for discharge over the weekend. Daughter has requested that she be contacted once discharge date is known so she can provide clothing to this patient and transport home.
--- NOTE | 2020-04-25 10:02 | HMH.ACPN2 ---
Internal Medicine - PN: Subj *Date: 04/25/20 *Time: 13:20 Interval history: 85-year-old male patient sitting up in in chair at bedside. He reports he is feeling better today potassium today is 3.3 Exam Vital signs and Labs for Last 24 Hours: Temp Pulse Resp BP Pulse Ox 98.1 F 70 16 118/62 95 04/25/20 07:53 04/25/20 08:00 04/25/20 07:53 04/25/20 07:53 04/25/20 08:00 Laboratory Results - last 24 hr 04/25/20 05:34: WBC 8.4, RBC 4.02 L, Hgb 12.2 L, Hct 36.4 L, MCV 90.5, MCH 30.3, MCHC 33.5, RDW 14.6, Plt Count 150, MPV 8.3, Neut % (Auto) 80.9 H, Lymph % (Auto) 10.3, [place] % (Auto) 6.7, Eos % (Auto) 1.7, Baso % (Auto) 0.3, Neut # (Auto) 6.8, Lymph # (Auto) 0.9, [place] # (Auto) 0.6, Eos # (Auto) 0.1, Baso # (Auto) 0.0 04/25/20 05:34: Sodium 138, Potassium 3.3 L D, Chloride 95 L, Carbon Dioxide 39 H, Anion Gap 7.3, BUN 16 D, Creatinine 0.80, Estimated Creat Clear 49, Estimated GFR 92, Est GFR ( Amer) 111 D, Glucose 109 H, Calcium 9.0 I & O for Last 24 hours: Intake & Output 04/22/20 04/23/20 04/24/20 04/25/20 23:59 23:59 23:59 23:59 Intake Total 0 / 0 2835 / 3075 240 / 240 Output Total 1380 / 1380 400 / 400 Balance 0 / -700 1455 / 1695 -160 / -160 Weight 143 lb 6 oz 135 lb 8 oz 141 lb 4 oz - Constitutional no acute distress, chronically ill appearing - *Routine HEENT Exam Head: Present: normocephalic Eye: Present: EOMI ENT: Present: mucous membranes moist - *Routine Neck Exam Present: trachea midline. Absent: tracheal deviation - *Routine Respiratory Exam Present: CTA bilaterally. Absent: accessory muscle use - *Routine Cardiovascular Exam Present: RRR - *Routine Abdominal Exam Present: soft, normoactive bowel sounds. Absent: tenderness, firm - *Routine Extremities Exam Present: full ROM, pulses intact. Absent: cyanosis, edema, calf tenderness - *Routine Skin Exam Present: intact, dry, warm. Absent: cyanosis, erythema - *Routine Neurological Exam Present: alert, oriented X3. Absent: altered mental status - Routine Psychiatric Exam Present: normal affect, normal thought process. Absent: auditory hallucinations, tactile hallucinations Assessment and Plan (1) Nonsustained ventricular tachycardia Status: Resolved Category: Medical Code(s): I47.2 - Ventricular tachycardia (2) Nausea and vomiting Start date: 04/23/20 Status: Acute Qualifiers: Vomiting type: unspecified Vomiting Intractability: intractable Qualified Code(s): R11.2 - Nausea with vomiting, unspecified Category: Medical Code(s): R11.2 - Nausea with vomiting, unspecified (3) Syncope Status: Acute Qualifiers: Syncope type: unspecified Qualified Code(s): R55 - Syncope and collapse Category: Medical Code(s): R55 - Syncope and collapse (4) V-tach Status: Acute Category: Medical Code(s): I47.2 - Ventricular tachycardia (5) Dyspnea Status: Acute Qualifiers: Dyspnea type: dyspnea on exertion Qualified Code(s): R06.00 - Dyspnea, unspecified Category: Medical Code(s): R06.00 - Dyspnea, unspecified (6) NYHA class 2 heart failure with reduced ejection fraction Status: Acute Category: Medical Code(s): I50.20 - Unspecified systolic (congestive) heart failure (7) Atrial fibrillation Status: Chronic Qualifiers: Atrial fibrillation type: longstanding persistent Qualified Code(s): I48.11 - Longstanding persistent atrial fibrillation Category: Medical Code(s): I48.91 - Unspecified atrial fibrillation (8) Automatic implantable cardiac defibrillator in situ Status: Chronic Category: Medical Code(s): Z95.810 - Presence of automatic (implantable) cardiac defibrillator (9) CAD (coronary artery disease) Status: Chronic Qualifiers: Coronary Disease-Associated Artery/Lesion type: [place] artery [place] vs. transplanted heart: [place] heart Associated angina: without angina Qualified Code(s): I25.10 - Atheroscler
--- NOTE | 2020-04-25 11:03 | DIET.NUTRFU ---
Nutritional assessment, IP completed. Pt with severe protein calorie malnutrition with loss of 24% body weight past month. Pt with Barretts esophagus and esophageal cancer, to see Dr. Adkins today. In depth diet education/counseling for malnutrition/high protein diet, hypokalemia/potassium sources, dysphagia(soft/puree diet), and CHF/low sodium diet given. Following further findings/care plans and monitoring pt to provide MNT t/o stay. Will advance to low sodium/soft diet with pureed meats as requested by pt for swallowing difficulty. Pro supplements TID given, Breeze chosen as pt has mild dairy allergy/diarrhea with ensure. Pt may have additional Breeze/any low sodium snacks or replacement meals requested t/o stay.
--- NOTE | 2020-04-25 12:14 | HMH.PNCARD ---
Subjective Date: 04/25/20 Time: 12:14 Principal diagnosis: V. tach, recurrent with AICD firings, Hypokalemia Interval history: 85-year-old white male in bedside chair no acute distress. Still feels very weak 1 with occasional fluttering sensation. Patient does relate having some hallucinations of seeing people and pets in his room. He is going for an EGD today to evaluate his difficulty swallowing with history of Mims's esophagus and esophageal cancer. He has had poor p.o. intake recently due to difficulty swallowing. Telemetry shows paced rhythm with intermittent PVCs. Potassium is up to 3.3 today Exam Vital signs and Labs for Last 24 Hours: Temp Pulse Resp BP Pulse Ox 98.1 F 70 16 118/62 95 04/25/20 07:53 04/25/20 08:00 04/25/20 07:53 04/25/20 07:53 04/25/20 08:00 Laboratory Results - last 24 hr 04/25/20 05:34: WBC 8.4, RBC 4.02 L, Hgb 12.2 L, Hct 36.4 L, MCV 90.5, MCH 30.3, MCHC 33.5, RDW 14.6, Plt Count 150, MPV 8.3, Neut % (Auto) 80.9 H, Lymph % (Auto) 10.3, [place] % (Auto) 6.7, Eos % (Auto) 1.7, Baso % (Auto) 0.3, Neut # (Auto) 6.8, Lymph # (Auto) 0.9, [place] # (Auto) 0.6, Eos # (Auto) 0.1, Baso # (Auto) 0.0 04/25/20 05:34: Sodium 138, Potassium 3.3 L D, Chloride 95 L, Carbon Dioxide 39 H, Anion Gap 7.3, BUN 16 D, Creatinine 0.80, Estimated Creat Clear 49, Estimated GFR 92, Est GFR ( Amer) 111 D, Glucose 109 H, Calcium 9.0 I & O for Last 24 hours: Intake & Output 04/23/20 04/24/20 04/25/20 04/26/20 11:59 11:59 11:59 11:59 Intake Total 1485 / 1485 1590 / 1590 Output Total 1380 / 1380 400 / 400 Balance 105 / 105 1190 / 1190 Weight 136 lb 135 lb 8 oz 141 lb 1.533 oz - Constitutional no acute distress - *Routine Respiratory Exam Present: CTA bilaterally - *Routine Cardiovascular Exam Present: RRR, murmur - *Routine Extremities Exam Absent: cyanosis, clubbing, edema - *Routine Neurological Exam Present: alert, oriented X3 Progress Note: A&P (1) Nonsustained ventricular tachycardia Status: Resolved (2) Nausea and vomiting Status: Acute (3) Syncope Status: Acute (4) V-tach Status: Acute (5) Dyspnea Status: Acute (6) NYHA class 2 heart failure with reduced ejection fraction Status: Acute (7) Atrial fibrillation Status: Chronic (8) Automatic implantable cardiac defibrillator in situ Status: Chronic (9) CAD (coronary artery disease) Status: Chronic (10) Cardiomyopathy Status: Chronic (11) Chronic systolic congestive heart failure, NYHA class 3 Status: Chronic (12) History of coronary artery bypass graft Status: Chronic (13) Hyperlipidemia Status: Chronic (14) Hypertensive heart disease Status: Chronic (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 Cardiac status stable at this time 2. Continue bisoprolol and amiodarone 3. Continue potassium replacement 4. He is acceptable risk from a cardiac standpoint to proceed with EGD today. 5. Recommend monitoring over the weekend while trying to replace his potassium, increase his strength and oral intake and monitor for continued hallucinations.
--- NOTE | 2020-04-25 13:31 | HMH.PROC ---
[facility] Procedure Note Procedure Note:: Upper Endoscopy Procedure Report: Esophagogastroduodenoscopy with cold biopsies and TTS balloon dilation Endoscopost: Grant Adkins II, MD Referring Physician: Danish Clarke MD Date of Procedure: April 25, 2020 Equipment: Olympus GIF 180 standard upper endoscope Sedation: MAC sedation Indications: Mr. Blanco is an 85-year-old gentleman well-known to me because of his Mims's esophagus with high-grade dysplasia. The patient presented with his AICD defibrillator shocking him up to 20 times. He was admitted on an amiodarone drip. The patient does have a history of Mims's esophagus with focal high-grade dysplasia. We have done endoscopic mucosal resection and ablation but he does get recurrence. His initial endoscopic mucosal resection was in [place] in 2014. I did send him to the [facility] (Dr. Cardozo and Dr. Ammy Aiken) for endoscopic mucosal resection. I did perform EMR in December 2019. The patient has had the development of dysphagia to primarily solids. He is now having the and just mostly liquids or pur?ed. Procedure: Prior to the procedure, a history and physical exam was performed, and patient's medications and allergies were reviewed. The risks, benefits and alternatives of the sedation and procedure were discussed with the patient. All questions were answered and informed consent was obtained. The patient was brought to the procedure room. Patient identification and proposed procedure were verified by the physician and the nurse. The patient was placed in a left lateral decubitus position and the scope was passed under direct vision. Throughout the procedure, the patient's blood pressure, pulse, and oxygen saturations were monitored continuously. The upper GI endoscopy was accomplished without difficulty. The patient tolerated the procedure well. Findings: The scope was passed directly into the upper esophagus and advanced to the third portion of the duodenum. The post bulbar duodenum and duodenal bulb were normal with normal mucosa and conniventes. The scope was withdrawn through a normal duodenal bulb and pylorus into the stomach. There was mild reactive gastropathy of the antrum of the stomach. The remainder of the body and fundus were normal. Upon retroflexion there was a 3 cm hiatal hernia. The scope was then withdrawn into the esophagus. There was additional ulceration with tongue extensions of salmon-colored mucosa consistent with Mims's esophagus. There were multiple areas on NBI (narrowband imaging) suspicious of dysplasia. Cold biopsies were obtained directed towards these areas. There was some stenosis/stricturing of the distal esophagus. This was dilated to 20 mm with a TTS hydrostatic balloon. The mid and proximal esophagus were normal. Impression: 1. Short segment Mims's esophagus with ulceration and mucosal changes suspicious for high-grade dysplasia or early adenocarcinoma status post dilation to 20 mm Plan: The patient will continue PPI therapy. I will follow-up the biopsies. Based upon the patient's significant comorbidities, at this point I would offer repeat radiofrequency ablation versus esophageal stent placement. He may eventually require gastrostomy tube placement.
--- NOTE | 2020-04-25 13:49 | HMH.ANESCL ---
[facility] Anesthesia Checklist - Patient Identification Patient Identification: Arm Band - Structural Data Admitted From: Inpatient Planned Operative Procedure/s: egd Consent for Planned Operative Procedure(s) Verified: Yes Verified Documents: Surgical Consent - Additional verifications Anesthesia Reactions: No Hx Blood Transfusions: No Blood Transfusion Reaction: No - Anesthesia Plan Anesthesia Risk discussed: Yes Anesthesia Plan: Verified ASA Class: III Anesthesia Type: General [facility] History I have reviewed the patient's past medical history: Yes Medical History: Reports:: Atrial Fibrillation, Cancer (ESOPHAGUS), Cardiomyopathy, Congestive Heart Failure, Coronary Artery Disease, Gastroesophageal Reflux Disease(GERD), Hyperlipidemia, Hypertension, Internal Pacemaker, Lung Disease, Myocardial Infarction Denies:: Diabetes Mellitus Type 1, Diabetes Mellitus Type 2, MRSA, Seizures *Have you ever received a pneumonia vaccine?: Yes *Have you received a flu vaccine this season?: Yes Other Medical History: Reports: Arthritis, Cataracts. Denies: Blood Transfusion Reaction Anesthesia experience/problems:: none Laterality Cases: Bilateral: Tonsillectomy Other Surgeries: Yes: Angioplasty, CABG, Cardiac Catheterization, Coronary Stent, EGD, Hernia Repair, Pacemaker, Other Amputation: No Fractures: No - *Social History Last grade of school completed: Some college Smoking Status: Never smoker Alcohol Intake: never Substance Use Type: denies use *Occupational Status:: retired Housing: house Household Members: family *Travel in the last 8 weeks: None Family Hx:: Coronary Artery Disease, Diabetes, Heart Attack
--- NOTE | 2020-04-25 15:41 | HMH.OTEV ---
OT Inpatient Evaluation Rehab OT IP Evaluation Start: 04/25/20 13:34 Freq: ONCE Status: Complete Protocol: Document 04/25/20 15:31 KARENVISHNU (Rec: 04/25/20 15:39 KARENVISHNU [id number]) Rehab OT IP Assessment Subjective History 85-year-old male patient presented to the emergency room after receiving shocks from his defibrillator. He reports he was sleeping in bed was awakened after being defibrillated, reports he became dizzy after getting up from the bed. He also reports nausea, lightheadedness, and increased fatigue for the past several days, he denies any fever/chills/body aches or nausea/vomiting/diarrhea. He also denies chest pain or shortness of breath. PMH: Atrial Fibrillation, Cancer (ESOPHAGUS), Cardiomyopathy, Congestive Heart Failure, Coronary Artery Disease, Gastroesophageal Reflux Disease(GERD), Hyperlipidemia, Hypertension, Internal Pacemaker, Lung Disease, Myocardial Infarction . Patient lives in a 1 story home with 1-2 BREANN with dtr. Dtr assist with transportation and cooking. Patient verbalize being independent with ADLs and fx'l mobility with a hx of falling. Subjective I would like to get up. Instructed Patient on proper hand/foot placement to complete supine->sit @ EOB-> SPT to recliner. Patient completed all transfers CGA. No LOB noted. No AE. Instructed Patient on d/d B socks for addressing LB Drsg. Patient completed task independently. No LOB noted. Objective Patient Orientation Person,Place,Time,Name,Age, Birthday,Year,Situation Upper Extremity Gross ROM WNL Bed Mobi
--- NOTE | 2020-04-25 16:03 | HMH.PTEV ---
Physical Therapy Evaluation Rehab PT IP Evaluation Start: 04/25/20 13:33 Freq: .once Status: Active Protocol: Document 04/25/20 15:57 PHORNE (Rec: 04/25/20 16:02 PHORNE [id number]) Subjective/History History History 85 yowm adm to [facility] with cardiac arrhytmia. He reports he lives at home with his daughter and son-in-law, no steps to enter the home and he is independent with mobility withou tusing an AD> Subjective Subjective Pt reports feeling a little tired, but no c/o pain. Rehab PT IP Eval Objective Appearance Patient Behavior Appropriate Patient Orientation Person,Place,Time Difficulty following instructions none Speech Pattern Clear Ambulation Patient Able to Ambulate Yes Ambulation Observation IP General Gait Pattern Observation No Deviations/Normal Ambulation Distance (feet) 30 Ambulation Assistive Device None Ambulation Ability Contact Guard/Hand Hold Balance Ability to Arise Able, uses arms to help Sitting Balance Steady, safe Standing Balance Narrow stance w/o support Dynamic Sitting Balance Ability Good Dynamic Standing Balance Ability Good Transfers Bed Transfer Ability Contact Guard/Hand Hold Chair Transfer Ability Contact Guard/Hand Hold Sit to Stand Bed Transfer Ability Contact Guard/Hand Hold Sit to Stand Chair Transfer Ability Contact Guard/Hand Hold ROM All Extremities PT ROM Status WFL MMT All Extremities PT MMT WFL Rehab PT IP prob,goals,plan Problems Date of Evaluation: 04/25/20 PT IP Problems Bed Mobility,Transfers,Gait Rehab Potential Rehab Potential Good Plan PT Intervention Plan Bed Mobility,Transfers,Gait, Therapeutic Exercise PT Plan Frequency BID Duration LOS Discharge Goals Bed Transfer Ability Supervision/Stand by Sit to Stand Chair Transfer Ability Supervision/Stand by Ambulation Assistive Device None Ambulation Distance (feet) 50 Discharge Plan PT Discharge Plan Pt is appropriate to return home once medically stable. Would likely benefit from Home Health therapy. G -code Required No Eval Complexity Eval Charge Codes 48664 - Moderate Complexity PHYSICIAN CERTIFICATION: I certify the specified therapy services for D
--- NOTE | 2020-04-25 18:11 | PC.NURSE ---
PT IS SITTING UP IN THE CHAIR. AMBULATED IN THE ROOM WITH PHYSICAL THERAPY. PT REQUESTED [employer] FOR DINNER AND TOLERATED WELL. PT STATES HE DOES NOT CARE FOR THE BREEZE B/C IT IS TO SWEET. SKIN C/D/I. LUNG SOUNDS CLEAR. ABDOMEN SOFT/NON TENDER WITH ACTIVE BOWEL SOUNDS. PACED ON THE MONITOR. MAC VSS. WILL CONTINUE TO MONITOR.
[2020-04-26] VITALS: BP 92/54; PULSE 70; RESP 16; TEMP 36.5; O2SAT 93
--- NOTE | 2020-04-26 02:16 | PC.NURSE ---
A&OX4. PT HAS TOLERATED RA WELL THROUGHOUT SHIFT. RESPIRATIONS REGULAR AND UNLABORED. LUNG SOUNDS BILATERALLY CLEAR. NO COUGH NOTED. HAND SEED LABORATORY ASSISTANT EQUAL. NO EDEMA NOTED. +2 PULSES NOTED THROUGHOUT. ACTIVE BOWEL SOUNDS HEARD IN ALL 4 QUADRANTS. NO BM THUS FAR. RANDALL CATHETER IN PLACE W CLEAR YELLOW URINE NOTED. NO KINKS NOTED. PT TRANSFERS W 1 PERSON ASSIST. NO REPORTS OF PAIN THUS FAR. PT HAS RESTED WELL THIS SHIFT. BED IN LOWEST POSITION. CALL LIGHT WITHIN REACH. VSS. WILL CONTINUE TO MONITOR.
[2020-04-26 04:00] VITALS: BP 96/56; PULSE 70; RESP 18; TEMP 36.4; O2SAT 97
[2020-04-26 05:00] VITALS: BMI 22.6
[2020-04-26 08:00] VITALS: BP 103/53; PULSE 70; RESP 20; TEMP 37.1; O2SAT 98
[2020-04-26 08:09] LABS: Anion Gap 10.1 mEq/L (5-15); Blood Urea Nitrogen 17 mg/dl (9-20); Calcium 9.3 mg/dl (8.4-10.2); Carbon Dioxide 34 mmol/L (22.0-30.0); Chloride 99 mmol/L (98-107); Creatinine Clearance Estimated 49 mL/min (50-200); Estimated Glomerular Filt Rate 92 ml/min (>60); GFR (African American) 111 ML/MIN (>60); Glucose 135 mg/dl (74-100); Potassium 4.1 mmoL/L (3.5-5.1); Sodium 139 mmol/L (136-145)
[2020-04-26 09:36] LABS: Basophils % 0.5 % (0.1-2.0); Eosinophils # 0.2 K/mm3 (0.0-0.4); Hematocrit 39.7 % (42.0-52.0); Hemoglobin 12.7 g/dL (14.1-18.0); Lymphocytes # 0.8 K/mm3 (0.7-4.5); Lymphocytes % 9.8 % (10-50); Mean Corpuscular HGB Conc 32.1 g/dL (31.8-35.4); Mean Corpuscular Hemoglobin 29.9 pg (27.0-31.2); Mean Platelet Volume 9.1 fl (7.4-10.4); Monocytes # 0.5 K/mm3 (0.1-1.0); Monocytes % 6.3 % (1.7-9.3); Neutrophils # 6.4 K/mm3 (1.8-7.8); Neutrophils % 81.4 % (37.0-80.0); Platelet Count 156 K/mm3 (142-424); Red Blood Count 4.26 M/mm3 (4.60-6.20); Red Cell Distribution Width 14.7 % (11.5-17.5); White Blood Count 7.9 K/mm3 (4.8-10.8)
--- NOTE | 2020-04-26 09:48 | HMH.ACPN2 ---
Internal Medicine - PN: Subj *Date: 04/27/20 *Time: 07:57 Interval history: feeling better this am -reviewed egd report- oob Exam Vital signs and Labs for Last 24 Hours: Temp Pulse Resp BP Pulse Ox 98.7 F 70 20 103/53 L 98 04/26/20 08:00 04/26/20 08:00 04/26/20 08:00 04/26/20 08:00 04/26/20 08:00 Laboratory Results - last 24 hr 04/26/20 07:45: WBC 7.9, RBC 4.26 L, Hgb 12.7 L, Hct 39.7 L, MCV 93.0, MCH 29.9, MCHC 32.1, RDW 14.7, Plt Count 156, MPV 9.1, Neut % (Auto) 81.4 H, Lymph % (Auto) 9.8 L, [place] % (Auto) 6.3, Eos % (Auto) 2.0, Baso % (Auto) 0.5, Neut # (Auto) 6.4, Lymph # (Auto) 0.8, [place] # (Auto) 0.5, Eos # (Auto) 0.2, Baso # (Auto) 0.0 04/26/20 07:45: Sodium 139, Potassium 4.1 D, Chloride 99, Carbon Dioxide 34 H, Anion Gap 10.1, BUN 17, Creatinine 0.80, Estimated Creat Clear 49, Estimated GFR 92, Est GFR ( Amer) 111, Glucose 135 H, Calcium 9.3 I & O for Last 24 hours: Intake & Output 04/23/20 04/24/20 04/25/20 04/26/20 11:59 11:59 11:59 11:59 Intake Total 1485 / 1485 1590 / 1590 1209 / 1209 Output Total 1380 / 1380 400 / 400 400 / 400 Balance 105 / 105 1190 / 1190 809 / 809 Weight 136 lb 135 lb 8 oz 141 lb 1.533 oz 141 lb 3 oz - Constitutional no acute distress - *Routine HEENT Exam Head: Present: normocephalic Eye: Present: EOMI, PERRL ENT: Present: mucous membranes dry - *Routine Neck Exam Present: supple - *Routine Respiratory Exam Present: CTA bilaterally - *Routine Cardiovascular Exam Present: RRR - *Routine Abdominal Exam Present: soft - *Routine Extremities Exam Present: pulses intact - *Routine Skin Exam Present: intact - *Routine Neurological Exam Present: alert - Routine Psychiatric Exam Present: normal affect Assessment and Plan (1) Nonsustained ventricular tachycardia Status: Resolved Category: Medical Code(s): I47.2 - Ventricular tachycardia (2) Nausea and vomiting Start date: 04/23/20 Status: Acute Qualifiers: Vomiting type: unspecified Vomiting Intractability: intractable Qualified Code(s): R11.2 - Nausea with vomiting, unspecified Category: Medical Code(s): R11.2 - Nausea with vomiting, unspecified (3) Syncope Status: Acute Qualifiers: Syncope type: unspecified Qualified Code(s): R55 - Syncope and collapse Category: Medical Code(s): R55 - Syncope and collapse (4) V-tach Status: Acute Category: Medical Code(s): I47.2 - Ventricular tachycardia (5) Dyspnea Status: Acute Qualifiers: Dyspnea type: dyspnea on exertion Qualified Code(s): R06.00 - Dyspnea, unspecified Category: Medical Code(s): R06.00 - Dyspnea, unspecified (6) NYHA class 2 heart failure with reduced ejection fraction Status: Acute Category: Medical Code(s): I50.20 - Unspecified systolic (congestive) heart failure (7) Atrial fibrillation Status: Chronic Qualifiers: Atrial fibrillation type: longstanding persistent Qualified Code(s): I48.11 - Longstanding persistent atrial fibrillation Category: Medical Code(s): I48.91 - Unspecified atrial fibrillation (8) Automatic implantable cardiac defibrillator in situ Status: Chronic Category: Medical Code(s): Z95.810 - Presence of automatic (implantable) cardiac defibrillator (9) CAD (coronary artery disease) Status: Chronic Qualifiers: Coronary Disease-Associated Artery/Lesion type: [place] artery [place] vs. transplanted heart: [place] heart Associated angina: without angina Qualified Code(s): I25.10 - Atherosclerotic heart disease of [place] coronary artery without angina pectoris Category: Medical Code(s): I25.10 - Atherosclerotic heart disease of [place] coronary artery without angina pectoris (10) Cardiomyopathy Status: Chronic Qualifiers: Cardiomyopathy type: ischemic Qualified Code(s): I25.5 - Ischemic cardiomyopathy Category: Medical Code(s): I42.9 - Cardiomyopathy, unspecified (1
[2020-04-26 12:00] VITALS: BP 107/66; PULSE 70; RESP 18; TEMP 36.8; O2SAT 95
[2020-04-26 16:00] VITALS: BP 87/54; PULSE 70; RESP 18; TEMP 36.9; O2SAT 98
--- NOTE | 2020-04-26 19:51 | PC.NURSE ---
Alert and oriented x 4. No cute changes this evening. Pt has been up to chair this shift. CB in reach and vss.
[2020-04-26 20:00] VITALS: BP 112/69; PULSE 70; RESP 18; TEMP 36.9; O2SAT 96
[2020-04-27] VITALS (8 sets, daily range): BP systolic 96–125; BP diastolic 53–72; PULSE 60–80; RESP 17–18; TEMP 36.6–37; O2SAT 95–99; BMI 23.0
[2020-04-27 06:53] LABS: Basophils # 0.1 K/mm3 (0-0.2); Basophils % 0.7 % (0.1-2.0); Eosinophils # 0.2 K/mm3 (0.0-0.4); Eosinophils % 3.6 % (0.1-12.0); Hematocrit 37.1 % (42.0-52.0); Hemoglobin 12.1 g/dL (14.1-18.0); Mean Corpuscular HGB Conc 32.5 g/dL (31.8-35.4); Mean Corpuscular Hemoglobin 29.9 pg (27.0-31.2); Mean Corpuscular Volume 92.2 fl (80-94); Mean Platelet Volume 8.1 fl (7.4-10.4); Monocytes # 0.4 K/mm3 (0.1-1.0); Neutrophils % 74.6 % (37.0-80.0); Platelet Count 148 K/mm3 (142-424); Red Blood Count 4.03 M/mm3 (4.60-6.20); Red Cell Distribution Width 14.8 % (11.5-17.5); White Blood Count 6.7 K/mm3 (4.8-10.8)
--- NOTE | 2020-04-27 06:57 | PC.NURSE ---
pt has had no acute changes. no hallucinations voiced. no complaints at this time. pt is a standby assist. urinating without difficulty since dickens removal. iv patent and infusing per order. telemetry reads paced with occasionally PVC. call light in reach. vss. will continue to monitor
[2020-04-27 07:02] LABS: Chloride 107 mmol/L (98-107); Potassium 4.7 mmoL/L (3.5-5.1); Sodium 138 mmol/L (136-145)
[2020-04-27 07:05] LABS: Anion Gap 6.7 mEq/L (5-15); Blood Urea Nitrogen 16 mg/dl (9-20); Calcium 9.1 mg/dl (8.4-10.2); Carbon Dioxide 29 mmol/L (22.0-30.0); Creatinine Clearance Estimated 50 mL/min (50-200); Estimated Glomerular Filt Rate 92 ml/min (>60); GFR (African American) 111 ML/MIN (>60)
[2020-04-27 07:07] LABS: Glucose 103 mg/dl (74-100)
--- NOTE | 2020-04-27 10:17 | HMH.ACPN2 ---
Internal Medicine - PN: Subj *Date: 04/27/20 *Time: 10:17 Interval history: awake and oob - feels ok - reviewed meds and labs and vs - no new c/o Exam Vital signs and Labs for Last 24 Hours: Temp Pulse Resp BP Pulse Ox 97.9 F 70 18 125/67 99 04/27/20 08:00 04/27/20 08:00 04/27/20 08:00 04/27/20 08:00 04/27/20 08:00 Laboratory Results - last 24 hr 04/27/20 06:34: WBC 6.7, RBC 4.03 L, Hgb 12.1 L, Hct 37.1 L, MCV 92.2, MCH 29.9, MCHC 32.5, RDW 14.8, Plt Count 148, MPV 8.1, Neut % (Auto) 74.6, Lymph % (Auto) 15.0, [place] % (Auto) 6.0, Eos % (Auto) 3.6, Baso % (Auto) 0.7, Neut # (Auto) 5.0, Lymph # (Auto) 1.0, [place] # (Auto) 0.4, Eos # (Auto) 0.2, Baso # (Auto) 0.1 04/27/20 06:34: Sodium 138, Potassium 4.7, Chloride 107, Carbon Dioxide 29, Anion Gap 6.7, BUN 16, Creatinine 0.80, Estimated Creat Clear 50, Estimated GFR 92, Est GFR ( Amer) 111, Glucose 103 H D, Calcium 9.1 I & O for Last 24 hours: Intake & Output 04/24/20 04/25/20 04/26/20 04/27/20 11:59 11:59 11:59 11:59 Intake Total 1485 / 1485 1590 / 1590 1209 / 1209 2160 / 2160 Output Total 1380 / 1380 400 / 400 400 / 400 1525 / 1525 Balance 105 / 105 1190 / 1190 809 / 809 635 / 635 Weight 135 lb 8 oz 141 lb 1.533 oz 141 lb 3 oz 143 lb 1 oz - Constitutional no acute distress, thin - *Routine HEENT Exam Head: Present: normocephalic Eye: Present: EOMI, PERRL ENT: Present: mucous membranes dry - *Routine Neck Exam Present: supple - *Routine Respiratory Exam Present: decreased breath sounds - *Routine Cardiovascular Exam Present: RRR, murmur, S4 - *Routine Abdominal Exam Present: soft - *Routine Extremities Exam Absent: calf tenderness - *Routine Skin Exam Present: intact - *Routine Neurological Exam Present: alert, oriented X3, CN II-XII intact - Routine Psychiatric Exam Present: normal affect, cooperative Assessment and Plan (1) Nonsustained ventricular tachycardia Status: Resolved Category: Medical Code(s): I47.2 - Ventricular tachycardia (2) Nausea and vomiting Start date: 04/23/20 Status: Acute Qualifiers: Vomiting type: unspecified Vomiting Intractability: intractable Qualified Code(s): R11.2 - Nausea with vomiting, unspecified Category: Medical Code(s): R11.2 - Nausea with vomiting, unspecified (3) Syncope Status: Acute Qualifiers: Syncope type: unspecified Qualified Code(s): R55 - Syncope and collapse Category: Medical Code(s): R55 - Syncope and collapse (4) V-tach Status: Acute Category: Medical Code(s): I47.2 - Ventricular tachycardia (5) Dyspnea Status: Acute Qualifiers: Dyspnea type: dyspnea on exertion Qualified Code(s): R06.00 - Dyspnea, unspecified Category: Medical Code(s): R06.00 - Dyspnea, unspecified (6) NYHA class 2 heart failure with reduced ejection fraction Status: Acute Category: Medical Code(s): I50.20 - Unspecified systolic (congestive) heart failure (7) Atrial fibrillation Status: Chronic Qualifiers: Atrial fibrillation type: longstanding persistent Qualified Code(s): I48.11 - Longstanding persistent atrial fibrillation Category: Medical Code(s): I48.91 - Unspecified atrial fibrillation (8) Automatic implantable cardiac defibrillator in situ Status: Chronic Category: Medical Code(s): Z95.810 - Presence of automatic (implantable) cardiac defibrillator (9) CAD (coronary artery disease) Status: Chronic Qualifiers: Coronary Disease-Associated Artery/Lesion type: [place] artery [place] vs. transplanted heart: [place] heart Associated angina: without angina Qualified Code(s): I25.10 - Atherosclerotic heart disease of [place] coronary artery without angina pectoris Category: Medical Code(s): I25.10 - Atherosclerotic heart disease of [place] coronary artery without angina pectoris (10) Cardiomyopathy Status: Chronic Qualifiers: Cardiomyopathy type: ischemic Qualif
[2020-04-28] VITALS: BP 102/56; PULSE 70; RESP 16; TEMP 36.7; O2SAT 98
[2020-04-28 04:00] VITALS: BP 100/52; PULSE 70; PULSE 80; RESP 18; TEMP 36.6; O2SAT 97
[2020-04-28 05:00] VITALS: BMI 23.3
[2020-04-28 06:57] LABS: Basophils % 0.7 % (0.1-2.0); Eosinophils # 0.3 K/mm3 (0.0-0.4); Eosinophils % 4.6 % (0.1-12.0); Hematocrit 38.2 % (42.0-52.0); Hemoglobin 12.5 g/dL (14.1-18.0); Lymphocytes # 0.9 K/mm3 (0.7-4.5); Lymphocytes % 14.7 % (10-50); Mean Corpuscular HGB Conc 32.7 g/dL (31.8-35.4); Mean Corpuscular Hemoglobin 30.3 pg (27.0-31.2); Mean Corpuscular Volume 92.7 fl (80-94); Mean Platelet Volume 8.2 fl (7.4-10.4); Monocytes # 0.3 K/mm3 (0.1-1.0); Neutrophils # 4.7 K/mm3 (1.8-7.8); Platelet Count 159 K/mm3 (142-424); Red Blood Count 4.12 M/mm3 (4.60-6.20); Red Cell Distribution Width 14.9 % (11.5-17.5); White Blood Count 6.3 K/mm3 (4.8-10.8)
[2020-04-28 07:10] LABS: Anion Gap 6.9 mEq/L (5-15); Blood Urea Nitrogen 15 mg/dl (9-20); Calcium 9.1 mg/dl (8.4-10.2); Carbon Dioxide 29 mmol/L (22.0-30.0); Chloride 107 mmol/L (98-107); Creatinine Clearance Estimated 50 mL/min (50-200); Estimated Glomerular Filt Rate 80 ml/min (>60); GFR (African American) 97 ML/MIN (>60); Glucose 105 mg/dl (74-100); Potassium 4.9 mmoL/L (3.5-5.1); Sodium 138 mmol/L (136-145)
[2020-04-28 08:00] VITALS: BP 97/47; PULSE 70; RESP 16; TEMP 36.5; O2SAT 96
--- NOTE | 2020-04-28 08:25 | ECG_ITS ---
APPROVED REPORT Exam: Resting ECG HR:70 bpm ECG Measurements Heart Rate 70 AXES QRSd 180 QRS 218 QT 490 T 52 QTc 529 Conclusion Electronic ventricular pacemaker Electronically signed by : Kashif Marie, 04/29/2020 21:09:39
--- NOTE | 2020-04-28 08:28 | HMH.PNCARD ---
Subjective Date: 04/28/20 Time: 08:28 Principal diagnosis: V. tach, recurrent with AICD firings, Hypokalemia Interval history: 85-year-old white male in bed in no acute distress. Patient is eating breakfast without difficulty. No further AICD firings. Telemetry shows paced rhythm. EKG is pending at this time Potassium 4.9 Renal functions normal Hemoglobin 12.5. Patient is anxious to go home today. Exam Vital signs and Labs for Last 24 Hours: Temp Pulse Resp BP Pulse Ox 97.9 F 70 18 100/52 L 97 04/28/20 04:00 04/28/20 04:00 04/28/20 04:00 04/28/20 04:00 04/28/20 04:00 Laboratory Results - last 24 hr 04/28/20 06:39: WBC 6.3, RBC 4.12 L, Hgb 12.5 L, Hct 38.2 L, MCV 92.7, MCH 30.3, MCHC 32.7, RDW 14.9, Plt Count 159, MPV 8.2, Neut % (Auto) 75.0, Lymph % (Auto) 14.7, [place] % (Auto) 5.0, Eos % (Auto) 4.6, Baso % (Auto) 0.7, Neut # (Auto) 4.7, Lymph # (Auto) 0.9, [place] # (Auto) 0.3, Eos # (Auto) 0.3, Baso # (Auto) 0.0 04/28/20 06:39: Sodium 138, Potassium 4.9, Chloride 107, Carbon Dioxide 29, Anion Gap 6.9, BUN 15, Creatinine 0.90, Estimated Creat Clear 50, Estimated GFR 80, Est GFR ( Amer) 97, Glucose 105 H, Calcium 9.1 I & O for Last 24 hours: Intake & Output 04/25/20 04/26/20 04/27/20 04/28/20 11:59 11:59 11:59 11:59 Intake Total 1590 / 1590 1209 / 1209 2160 / 2160 360 / 360 Output Total 400 / 400 400 / 400 1525 / 1525 1700 / 1700 Balance 1190 / 1190 809 / 809 635 / 635 -1340 / -1340 Weight 141 lb 1.533 oz 141 lb 3 oz 143 lb 1 oz 145 lb 2 oz - Constitutional no acute distress - *Routine HEENT Exam Head: Present: normocephalic Eye: Present: EOMI, PERRL ENT: Present: mucous membranes moist - *Routine Neck Exam Present: supple. Absent: lymphadenopathy - *Routine Respiratory Exam Present: CTA bilaterally - *Routine Cardiovascular Exam Present: RRR - *Routine Abdominal Exam Present: soft, normoactive bowel sounds. Absent: tenderness - *Routine Extremities Exam Present: edema. Absent: cyanosis, clubbing - *Routine Skin Exam Present: warm. Absent: rash - *Routine Neurological Exam Present: alert, oriented X3 Progress Note: A&P (1) Nonsustained ventricular tachycardia Status: Resolved (2) Nausea and vomiting Status: Acute (3) Syncope Status: Acute (4) V-tach Status: Acute (5) Dyspnea Status: Acute (6) NYHA class 2 heart failure with reduced ejection fraction Status: Acute (7) Atrial fibrillation Status: Chronic (8) Automatic implantable cardiac defibrillator in situ Status: Chronic (9) CAD (coronary artery disease) Status: Chronic (10) Cardiomyopathy Status: Chronic (11) Chronic systolic congestive heart failure, NYHA class 3 Status: Chronic (12) History of coronary artery bypass graft Status: Chronic (13) Hyperlipidemia Status: Chronic (14) Hypertensive heart disease Status: Chronic (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 Okay for discharge from cardiology standpoint. 2. We will reduce amiodarone to 400 mg daily. EKG is pending today. 3. Home medication recommendations: Entresto 1 twice daily Bisoprolol 10 mg daily Amiodarone 400 mg daily Lasix 80 mg daily Xarelto 20 mg daily Potassium 40 mEq daily He will follow-up in our office in 1 week with a BMP and BNP 1 day prior.
--- NOTE | 2020-04-28 10:24 | HMH.DCSUM ---
General - General Admission date:: 04/23/20 Discharge date: 04/28/20 HPI HPI: 85-year-old male patient presented to the emergency room after receiving shocks from his defibrillator. He reports he was sleeping in bed was awakened after being defibrillated, reports he became dizzy after getting up from the bed. He also reports nausea, lightheadedness, and increased fatigue for the past several days, he denies any fever/chills/body aches or nausea/vomiting/diarrhea. He also denies chest pain or shortness of breath Lab work in the emergency department white blood cell count normal, H/H stable at 14.3/43.1. Sodium 134 potassium extremely low at 2.0 BUN 54 and creatinine 1.8 In the emergency department blood pressure has been 100-1 teens systolic pulse of 70 and oxygen saturations 98-100 on room air. He has been loaded with amiodarone 150 mg x 2 and an amiodarone drip was started, he is also receiving potassium and magnesium as well as IV fluids. Cardiology has been consulted Emergency department staff patient has received several defibrillations from [facility], cardiology aware 04/23/2020 chest x-ray: IMPRESSION: No definitive acute findings. Slight coarsening of markings at at the lateral right base most likely reflects accentuated chronic fibrotic changes on today's higher contrast CXR. Doubt early infiltrate . Generous cardiomegaly with CABG and pacemaker.. No overt CHF; no pleural effusions Dictated by: Jemma, 85-year-old male patient lying in bed respirations easy even oxygen on at 2 L per nasal cannula oxygen saturations currently 99%. He denies any chest pain or shortness of breath. Potassium magnesium and amiodarone all infusing. Daughter at bedside patient's condition explained to daughter she verbalizes understanding. Patient awaiting bed on floor to be transferred he denies any concerns/needs at this moment Hospital Course Hospital Course: Laboratory Tests 04/23/20 04/23/20 04/23/20 08:25 08:25 08:25 WBC 7.1 RBC 4.90 Hgb 14.3 Hct 43.1 MCV 88.0 MCH 29.2 MCHC 33.2 RDW 14.1 Plt Count 207 MPV 7.7 Neut % (Auto) 80.8 H Lymph % (Auto) 11.5 [place] % (Auto) 5.8 Eos % (Auto) 1.2 Baso % (Auto) 0.7 Neut # (Auto) 5.7 Lymph # (Auto) 0.8 [place] # (Auto) 0.4 Eos # (Auto) 0.1 Baso # (Auto) 0.1 Total Counted Neutrophils % (Manual) Lymphocytes % (Manual) Monocytes % (Manual) Eosinophils % (Manual) Platelet Estimate RBC Morphology Sodium 134 L Potassium 2.0 L* Chloride 82 L Carbon Dioxide 40 H Anion Gap 14.0 BUN 54 H Creatinine 1.80 H Estimated Creat Clear 26 Estimated GFR 36 L Est GFR ( Amer) 44 L Glucose 194 H Calcium 10.2 Phosphorus Magnesium Total Bilirubin 1.2 Direct Bilirubin 0.2 Conjugated Bilirubin 0.0 Indirect Bilirubin 1.0 H Unconjugated Bilirubin 1.0 AST 34 ALT 21 Alkaline Phosphatase 97 Troponin I 0.52 H Total Protein 7.9 Albumin 4.8 Lipase 107 Urine Color Urine Appearance Urine pH Ur Specific [place] Urine Protein Urine Glucose (UA) Urine Ketones Urine Blood Urine Nitrate Urine Bilirubin Urine Urobilinogen Ur Leukocyte Esterase Urine RBC Urine WBC Hyaline Casts SARS-CoV-2 IgG Ab (Rapid) Negative SARS-CoV-2 IgM Ab (Rapid) Negative 04/23/20 04/23/20 04/23/20 09:14 10:46 14:56 WBC RBC Hgb Hct MCV MCH MCHC RDW Plt Count MPV Neut % (Auto) Lymph % (Auto) [place] % (Auto) Eos % (Auto) Baso % (Auto) Neut # (Auto) Lymph # (Auto) [place] # (Auto) Eos # (Auto) Baso # (Auto) Total Counted Neutrophils % (Manual) Lymphocytes % (Manual) Monocytes % (Manual) Eosinophils % (Manual) Platelet Estimate RBC Morphology Sodium Potassium Chloride Carbon Dioxide
[2020-04-28 12:00] VITALS: BP 94/52; PULSE 54; PULSE 66; RESP 17; TEMP 36.4; O2SAT 98
[2020-04-28 13:40] LABS: Adenovirus,PCR Not Detected (NotDetected); Bordetella Pertussis Not Detected (NotDetected); Chlamydophila Pneumoniae, PCR Not Detected (NotDetected); Coronavirus 19, PCR Not Detected (NotDetected); Coronavirus 229E Not Detected (NotDetected); Coronavirus NL63 Not Detected (NotDetected); Coronavirus OC43 Not Detected (NotDetected); Coronovirus HKU1,PCR Not Detected (NotDetected); Human Metapneumovirus Not Detected (NotDetected); Influenza A, PCR Not Detected (NotDetected); Influenza AH1, 2009 Not Detected (NotDetected); Influenza AH1, PCR Not Detected (NotDetected); Influenza AH3,PCR Not Detected (NotDetected); Influenza B, PCR Not Detected (NotDetected); Mycoplasma Pneumoniae, PCR Not Detected (NotDetected); Parainfluenza 1, PCR Not Detected (NotDetected); Parainfluenza 2, PCR Not Detected (NotDetected); Parainfluenza 3, PCR Not Detected (NotDetected); Parainfluenza 4, PCR Not Detected (NotDetected); Respiratory Syncytial Virus Not Detected (NotDetected); Rhinovirus/Enterovirus Not Detected (NotDetected)
[2020-04-28 17:04] VITALS: BP 86/46; PULSE 72
== END 2020-04-28 17:35 | disposition home or self-care (01) | DRG 308 ==
LOC: ER 09:57 → 2ND 10:45
PROVIDERS: Internal Medicine Gastroenterology; Nurse Practitioner Family; Admitting Provider Emergency Medicine; Emergency Provider Emergency Medicine; PCP Internal Medicine; Visit Provider Emergency Medicine
PROC: 0DJ08ZZ Inspection of Upper Intestinal Tract, Via Natural or Artificial Opening Endoscopic (ICD-10-PCS; CPT 43235; principal; 2020-04-25 13:00)
DX: I50.23 Acute on chronic systolic (congestive) heart failure (principal); K22.10 Ulcer of esophagus without bleeding; I11.0 Hypertensive heart disease with heart failure; I25.5 Ischemic cardiomyopathy; I25.2 Old myocardial infarction; Z95.810 Presence of automatic (implantable) cardiac defibrillator; Z95.1 Presence of aortocoronary bypass graft; Z88.2 Allergy status to sulfonamides; Z88.8 Allergy status to other drugs, medicaments and biological substances; Z79.899 Other long term (current) drug therapy; I47.2 Ventricular tachycardia; Z79.01 Long term (current) use of anticoagulants; K22.711 Barrett's esophagus with high grade dysplasia; C61 Malignant neoplasm of prostate; R13.10 Dysphagia, unspecified
CPT/HCPCS: 43249; 43239; 36415; 71045; 80048; 80076; 81001; 83690; 83735; 84100; 84484; 85007; 85025; 86328; 87581; 87633; 87798; 88305; 93005; 93306; 94761; 96365; 96367; 96375; 97110; 97116; 97162; 97165; 97530; 99284; C1726; J0282; J2405; J7060; Q9957

== ENCOUNTER → 2020-05-05 14:42 | Outpatient (CLI) | payer MEDICARE, BC, SELFPAY ==
[2020-05-05 17:50] LABS: Anion Gap 10.9 mEq/L (5-15); Blood Urea Nitrogen 21 mg/dl (9-20); Carbon Dioxide 33 mmol/L (22.0-30.0); Chloride 101 mmol/L (98-107); Estimated Glomerular Filt Rate 52 ml/min (>60); GFR (African American) 63 ML/MIN (>60); Glucose 106 mg/dl (74-100); Potassium 4.9 mmoL/L (3.5-5.1); Sodium 140 mmol/L (136-145)
[2020-05-05 17:57] LABS: NT Pro Brain Natriuretic Pep. 5610 pg/mL (0-450)
== END ==
PROVIDERS: Visit Provider Physician Assistant
DX: I50.22 Chronic systolic (congestive) heart failure (principal); E87.6 Hypokalemia; Z51.81 Encounter for therapeutic drug level monitoring; Z79.899 Other long term (current) drug therapy
CPT/HCPCS: 36415; 80048; 83880

== ENCOUNTER → 2020-05-21 14:37 | Outpatient (CLI) | payer MEDICARE, BC, SELFPAY ==
[2020-05-21 16:01] LABS: Alanine Aminotransferase 19 U/L (12-78); Albumin Level 4.2 g/dl (3.5-5.0); Alkaline Phosphatase 78 U/L (38-126); Anion Gap 10.8 mEq/L (5-15); Aspartate Amino Transferase 27 U/L (17-59); Bilirubin,Direct 0.1 mg/dl (0.0-0.4); Bilirubin,Indirect 0.4 mg/dL (0.0-0.9); Bilirubin,Total 0.5 mg/dl (0.2-1.3); Bilirubin,Unconjugated 0.4 mg/dL (0.0-1.1); Blood Urea Nitrogen 34 mg/dl (9-20); Calcium 9.5 mg/dl (8.4-10.2); Carbon Dioxide 33 mmol/L (22.0-30.0); Chloride 98 mmol/L (98-107); Cholesterol 157 mg/dl (140-200); Estimated Glomerular Filt Rate 48 ml/min (>60); GFR (African American) 58 ML/MIN (>60); Glucose 113 mg/dl (74-100); HDL Cholesterol 53 mg/dl (40-60); Magnesium 2.2 mg/dl (1.6-2.3); Potassium 4.8 mmoL/L (3.5-5.1); Sodium 137 mmol/L (136-145); Total Protein,Serum 6.7 g/dl (6.3-8.2); Triglycerides 148 mg/dl (30-150); VLDL Cholesterol 30 mg/dL (0-40)
[2020-05-21 16:12] LABS: Direct LDL Cholesterol 72.04 mg/dL (100-129)
[2020-05-21 16:18] LABS: Free T4 (Free Thyroxine) 1.78 ng/dl (0.78-2.19)
[2020-05-21 20:00] LABS: NT Pro Brain Natriuretic Pep. 8770 pg/mL (0-450)
[2020-05-21 20:22] LABS: Thyroid Stimulating Hormone 2.83 uIU/mL (0.465-4.68)
== END ==
PROVIDERS: Visit Provider Physician Assistant
DX: E78.5 Hyperlipidemia, unspecified (principal); I25.10 Atherosclerotic heart disease of native coronary artery without angina pectoris; I42.9 Cardiomyopathy, unspecified; I47.2 Ventricular tachycardia; I48.91 Unspecified atrial fibrillation; I50.22 Chronic systolic (congestive) heart failure; Z79.01 Long term (current) use of anticoagulants; Z95.1 Presence of aortocoronary bypass graft; Z95.810 Presence of automatic (implantable) cardiac defibrillator
CPT/HCPCS: 36415; 80048; 80061; 80076; 83735; 83880; 84439; 84443

== ENCOUNTER → 2020-06-23 11:04 | Outpatient (CLI) | payer MEDICARE, BC, SELFPAY ==
[2020-06-23 12:08] LABS: Chloride 102 mmol/L (98-107); Sodium 140 mmol/L (136-145)
[2020-06-23 12:12] LABS: Blood Urea Nitrogen 22 mg/dl (9-20); Calcium 9.4 mg/dl (8.4-10.2); Carbon Dioxide 33 mmol/L (22.0-30.0); Estimated Glomerular Filt Rate 71 ml/min (>60); GFR (African American) 86 ML/MIN (>60); Glucose 76 mg/dl (74-100)
== END ==
PROVIDERS: Visit Provider Physician Assistant
DX: R06.00 Dyspnea, unspecified (principal); R60.0 Localized edema
CPT/HCPCS: 36415; 80048

== ENCOUNTER → 2020-07-04 14:34 | Outpatient (CLI) | payer MEDICARE, BC, SELFPAY ==
[2020-07-07 08:56] LABS: Adenovirus F 40/41, stool Not Detected (NotDetected); Astrovirus Not Detected (NotDetected); Campylobacter Not Detected (NotDetected); Cryptosporidium Not Detected (NotDetected); Cyclospora Cayetanesis Not Detected (NotDetected); Entamoeba histolytica Not Detected (NotDetected); Enteroaggregative E coli Not Detected (NotDetected); Enteropathogenic E coli Not Detected (NotDetected); Enterotoxigenic E coli Not Detected (NotDetected); Giardia lamblia Not Detected (NotDetected); Norovirus Not Detected (NotDetected); Plesimonas Shigalloides, PCR Not Detected (NotDetected); Rotavirus A Not Detected (NotDetected); Salmonella, PCR Not Detected (NotDetected); Sapovirus Not Detected (NotDetected); Shiga-like toxin E coli Not Detected (NotDetected); Shigella Enterovasive E coli Not Detected (NotDetected); Vibrio Cholerae Not Detected (NotDetected); Vibrio, PCR Not Detected (NotDetected); Yersinia Entercolitica, PCR Not Detected (NotDetected)
[2020-07-07 11:39] LABS: Clostridium Difficile A/B, PCR Detected (NotDetected)
== END ==
PROVIDERS: Visit Provider Internal Medicine
DX: R19.7 Diarrhea, unspecified (principal); R14.0 Abdominal distension (gaseous); A04.72 Enterocolitis due to Clostridium difficile, not specified as recurrent
CPT/HCPCS: 87205; 87506

== ENCOUNTER → 2020-09-22 09:38 | Outpatient (CLI) | payer MEDICARE, BC, SELFPAY ==
--- NOTE | 2020-09-22 09:46 | XR_ITS ---
PROCEDURE: XR CHEST 2V CLINICAL HISTORY: NEOPLASM OF CHOROID COMPARISON: CR CXR2V XR chest 2V from 03/15/2018 CR CXR2 XR chest AP from 06/16/2018 CR XR CHEST PORTABLE from 04/23/2020 FINDINGS: There has been a prior CABG. There is cardiomegaly without failure. Biventricular and right atrial pacemaker wires are present from the left subclavian approach. The lungs are clear without infiltrates, suspicious nodules, or pleural effusions. Chronic blunting of the right CP angle. Mild degenerative changes thoracic spine. IMPRESSION: No change with no acute finding. Cardiomegaly, prior CABG with pacemaker present Dictated by: Williams Key MD 09/22/2020 10:14 Williams Key MD in [place] 09/22/2020 10:14
[2020-09-22 11:08] LABS: Bilirubin,Unconjugated 0.2 mg/dL (0.0-1.1)
[2020-09-22 11:09] LABS: Alanine Aminotransferase 18 U/L (12-78); Albumin Level 4.1 g/dl (3.5-5.0); Alkaline Phosphatase 84 U/L (38-126); Aspartate Amino Transferase 27 U/L (17-59); Bilirubin,Direct 0.4 mg/dl (0.0-0.4); Bilirubin,Indirect 0.2 mg/dL (0.0-0.9); Bilirubin,Total 0.6 mg/dl (0.2-1.3); Total Protein,Serum 6.6 g/dl (6.3-8.2)
== END ==
PROVIDERS: PCP Family Medicine Addiction Medicine; Visit Provider Internal Medicine
DX: D48.7 Neoplasm of uncertain behavior of other specified sites (principal)
CPT/HCPCS: 36415; 71046; 80076

== ENCOUNTER → 2020-09-29 12:55 | Outpatient (CLI) | payer MEDICARE, BC, SELFPAY ==
[2020-09-29 13:04] LABS: Basophils % 0.3 % (0.1-2.0); Eosinophils # 0.2 K/mm3 (0.0-0.4); Eosinophils % 2.4 % (0.1-12.0); Hematocrit 38.1 % (42.0-52.0); Lymphocytes # 0.8 K/mm3 (0.7-4.5); Lymphocytes % 12.5 % (10-50); Mean Corpuscular HGB Conc 31.5 g/dL (31.8-35.4); Mean Corpuscular Hemoglobin 28.4 pg (27.0-31.2); Mean Corpuscular Volume 90.2 fl (80-94); Mean Platelet Volume 7.4 fl (7.4-10.4); Monocytes # 0.3 K/mm3 (0.1-1.0); Monocytes % 5.5 % (1.7-9.3); Neutrophils # 4.7 K/mm3 (1.8-7.8); Neutrophils % 79.2 % (37.0-80.0); Platelet Count 157 K/mm3 (142-424); Red Blood Count 4.22 M/mm3 (4.60-6.20)
[2020-09-29 13:44] LABS: Chloride 105 mmol/L (98-107); Potassium 3.7 mmoL/L (3.5-5.1); Sodium 144 mmol/L (136-145)
[2020-09-29 13:47] LABS: Blood Urea Nitrogen 19 mg/dl (9-20); Estimated Glomerular Filt Rate 71 ml/min (>60); GFR (African American) 86 ML/MIN (>60)
[2020-09-29 13:48] LABS: Anion Gap 11.7 mEq/L (5-15); Calcium 8.9 mg/dl (8.4-10.2); Carbon Dioxide 31 mmol/L (22.0-30.0); Glucose 98 mg/dl (74-100)
== END ==
PROVIDERS: Visit Provider Internal Medicine
DX: C69.92 Malignant neoplasm of unspecified site of left eye (principal); I50.33 Acute on chronic diastolic (congestive) heart failure; I10 Essential (primary) hypertension
CPT/HCPCS: 80048; 85025

== ENCOUNTER → 2020-10-02 10:56 | Outpatient (CLI) | payer MEDICARE, BC, SELFPAY ==
--- NOTE | 2020-10-02 10:58 | CT_ITS ---
PROCEDURE: CT CHEST W CON CLINCAL INDICATION: ABD PAIN, DIARRHEA Shortness of breath COMPARISON: CT CT ABDOMEN PELVIS W CON from 01/28/2020 TECHNIQUE: IV Contrast: 75ml Isovue 370 Axial images obtained with sagittal and coronal reformats. All CT scans at the facility use one or more dose reduction, viz: automated exposure control, ma/kV adjustment per patient size (including targeted exams where dose is matched to indication, i.e. head), or iterative reconstruction technique. FINDINGS: HEART AND MEDIASTINAL STRUCTURES: There is cardiomegaly. There has been a prior CABG. Atherosclerotic changes involve the thoracic aorta. There is diffuse vascular calcification of the coronary arteries. No evidence of aortic aneurysm or central pulmonary embolus. There is moderate to severe enlargement of the left ventricle and moderate enlargement of the left atrium. There is a small hiatal hernia. No mediastinal or hilar mass or adenopathy. Cardiac pacemaker device is present from left subclavian approach with the generator in the left pectoral region. LUNGS AND PLEURAL SPACES: COPD changes. There is mild nonspecific coarsening of the interstitial markings in the lung bases. No lobar consolidation or collapse is evident. There is trace left-sided effusion. BONY STRUCTURES: No acute bony abnormalities apparent. UPPER ABDOMEN: See abdomen report There is bilateral gynecomastia IMPRESSION: Postsurgical changes with prior CABG. There is cardiomegaly with moderate to severe enlargement of the left ventricle and left atrium Trace left effusion with minimal prominence of the interstitium in the lung bases with COPD changes. Dictated by: Williams Key MD 10/02/2020 13:23 Williams Key MD in [facility] 10/02/2020 13:23
--- NOTE | 2020-10-02 10:58 | CT_ITS ---
PROCEDURE: CT ABDOMEN PELVIS W CON CLINICAL INDICATION: ABD PAIN, DIARRHEA COMPARISON: CT CT ABDOMEN PELVIS W CON from 01/28/2020 TECHNIQUE: IV Contrast: 75ML Isovue 370 Oral Contrast None Axial images obtained with sagittal and coronal reformats. All CT scans at the facility use one or more dose reduction, viz: automated exposure control, ma/kV adjustment per patient size (including targeted exams where dose is matched to indication, i.e. head), or iterative reconstruction technique. FINDINGS: There is a small amount fluid in the right anterior perihepatic region. No focal liver lesion is demonstrated. The spleen, adrenal glands, and pancreas have an unremarkable appearance. Has been a prior cholecystectomy. There is mild biliary ectasia similar to the previous exam. There is a large right renal cyst measuring 14 cm cephalad caudad, 11 cm transverse, and 14 cm AP overall not significantly changed in size. The cyst is causing mild right-sided hydronephrosis. The ureter is draped around the posterior aspect of the cyst better demonstrated on the previous exam which included delayed images. There is a small hiatal hernia. There is mild thickening of the antrum of the stomach which is nonspecific. No intestinal obstruction or free air is evident. There is diffuse colonic diverticulosis. No evidence of diverticulitis. There is a mild amount of retained colonic feces. There is reported prior appendectomy. There is mild haziness of the peritoneal fat in the lower abdomen. This is of unknown clinical significance. Small amount fluid is present within the pelvis. Small amount fluid density noted in the right inguinal canal. 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 No stenosis evident of the proximal and mid SMA. ISSA is patent. No evidence of aortic aneurysm. Suspected high-grade stenosis with poststenotic dilatation of the proximal aspect of the left renal artery. Degenerative changes are present in the spine and hips with mild lumbar scoliosis convex left. IMPRESSION: 1. Large partially septated right renal cyst causing right-sided hydronephrosis not significantly changed. 2. Mild nonspecific thickening of the antrum of the stomach which could be secondary to gastritis 3. 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 Small amount of fluid in the pelvis right inguinal canal, and perihepatic region. 5. Other nonacute findings as described above 6. Colonic diverticulosis. No evidence of diverticulitis Dictated by: Williams Key MD 10/02/2020 13:44 Williams Key MD in [facility] 10/02/2020 13:44
== END ==
PROVIDERS: PCP Internal Medicine; Visit Provider Internal Medicine
DX: R10.9 Unspecified abdominal pain (principal); R19.7 Diarrhea, unspecified
CPT/HCPCS: 71260; 74177; Q9967

== ENCOUNTER → 2020-10-07 09:11 | Outpatient (CLI) | payer MEDICARE, BC, SELFPAY | PROVIDERS: Visit Provider Internal Medicine | DX: Z01.818 Encounter for other preprocedural examination (principal); Z11.52 Encounter for screening for COVID-19 | CPT/HCPCS: U0003 ==

== ENCOUNTER → 2021-01-20 09:27 | Outpatient (CLI) | payer MEDICARE, BC, SELFPAY ==
[2021-01-20 10:52] LABS: Alanine Aminotransferase 19 U/L (12-78); Alkaline Phosphatase 69 U/L (38-126); Aspartate Amino Transferase 28 U/L (17-59); Bilirubin,Direct 0.5 mg/dl (0.0-0.4); Bilirubin,Total 0.5 mg/dl (0.2-1.3); Total Protein,Serum 6.6 g/dl (6.3-8.2)
[2021-01-20 11:09] LABS: Free Thyroxine Index 3.1 ug/dL (5.93-13.13); T4 (Thyroxine) 10.4 ug/dl (5.53-11.0); Triiodothryronine (T3) Uptake 30 % (23.5-40.5)
[2021-01-20 11:23] LABS: Thyroid Stimulating Hormone 2.12 uIU/mL (0.465-4.68)
== END ==
PROVIDERS: Visit Provider Physician Assistant
DX: R11.2 Nausea with vomiting, unspecified (principal); E78.5 Hyperlipidemia, unspecified
CPT/HCPCS: 36415; 80076; 84436; 84443; 84479

== ENCOUNTER → 2021-02-02 10:37 | Outpatient (CLI) | payer MEDICARE, BC, SELFPAY ==
[2021-02-02 10:43] LABS: Adenovirus F 40/41, stool Not Detected (NotDetected); Astrovirus Not Detected (NotDetected); Campylobacter Not Detected (NotDetected); Cryptosporidium Not Detected (NotDetected); Cyclospora Cayetanesis Not Detected (NotDetected); Entamoeba histolytica Not Detected (NotDetected); Enteroaggregative E coli Not Detected (NotDetected); Enterotoxigenic E coli Not Detected (NotDetected); Giardia lamblia Not Detected (NotDetected); Norovirus Not Detected (NotDetected); Plesimonas Shigalloides, PCR Not Detected (NotDetected); Rotavirus A Not Detected (NotDetected); Salmonella, PCR Not Detected (NotDetected); Sapovirus Not Detected (NotDetected); Shiga-like toxin E coli Not Detected (NotDetected); Shigella Enterovasive E coli Not Detected (NotDetected); Vibrio Cholerae Not Detected (NotDetected); Vibrio, PCR Not Detected (NotDetected); Yersinia Entercolitica, PCR Not Detected (NotDetected)
[2021-02-02 10:52] LABS: Basophils % 0.7 % (0.1-2.0); Eosinophils # 0.1 K/mm3 (0.0-0.4); Eosinophils % 2.6 % (0.1-12.0); Hematocrit 40.9 % (42.0-52.0); Hemoglobin 12.9 g/dL (14.1-18.0); Lymphocytes # 0.6 K/mm3 (0.7-4.5); Lymphocytes % 14.3 % (10-50); Mean Corpuscular HGB Conc 31.6 g/dL (31.8-35.4); Mean Corpuscular Hemoglobin 31.1 pg (27.0-31.2); Mean Corpuscular Volume 98.4 fl (80-94); Mean Platelet Volume 9.6 fl (7.4-10.4); Monocytes # 0.2 K/mm3 (0.1-1.0); Monocytes % 5.7 % (1.7-9.3); Neutrophils # 3.2 K/mm3 (1.8-7.8); Neutrophils % 76.7 % (37.0-80.0); Platelet Count 152 K/mm3 (142-424); Red Blood Count 4.16 M/mm3 (4.60-6.20); Red Cell Distribution Width 14.6 % (11.5-17.5); White Blood Count 4.2 K/mm3 (4.8-10.8)
[2021-02-02 11:10] LABS: Anion Gap 7.2 mEq/L (5-15); Blood Urea Nitrogen 20 mg/dl (9-20); Carbon Dioxide 35 mmol/L (22.0-30.0); Chloride 103 mmol/L (98-107); Estimated Glomerular Filt Rate 58 ml/min (>60); GFR (African American) 70 ML/MIN (>60); Glucose 108 mg/dl (74-100); Potassium 4.2 mmoL/L (3.5-5.1); Sodium 141 mmol/L (136-145)
[2021-02-02 14:10] LABS: Clostridium Difficile A/B, PCR Detected (NotDetected)
[2021-02-02 14:11] LABS: Enteropathogenic E coli Detected (NotDetected)
== END ==
PROVIDERS: Visit Provider Internal Medicine
DX: K52.9 Noninfective gastroenteritis and colitis, unspecified (principal); A04.72 Enterocolitis due to Clostridium difficile, not specified as recurrent; A04.0 Enteropathogenic Escherichia coli infection
CPT/HCPCS: 36415; 80048; 85025; 87506

== ENCOUNTER → 2021-03-14 13:44 | Outpatient (CLI) | payer MEDICARE, BC, SELFPAY | PROVIDERS: PCP Family Medicine; Visit Provider Nurse Practitioner Family | DX: Z20.822 Contact with and (suspected) exposure to COVID-19 (principal) | CPT/HCPCS: C9803; U0003; U0005 ==

== ENCOUNTER 2021-03-19 09:40 | Emergency (ER) | payer MEDICARE, BC, SELFPAY ==
[2021-03-19 09:40] VITALS: BP 111/53; PULSE 73; RESP 18; TEMP 36.8; O2SAT 94; BMI 22.6
--- NOTE | 2021-03-19 09:50 | PC.NURSE ---
Tanya went in to get a signature from pt who now was unresponsive and slurring his words, pt was moved to bed and taken to ct scan. aware and stroke alert called at this time. [id number]
[2021-03-19 09:53] VITALS: BMI 24.9
--- NOTE | 2021-03-19 09:54 | CT_ITS ---
PROCEDURE: CT HEAD/BRAIN WO CON CLINICAL INDICATION: stroke symptoms COMPARISON: CT HEADWO CT head/brain wo con from 06/16/2018 TECHNIQUE: Axial images obtained. All CT scans at the facility use one or more dose reduction, viz: automated exposure control, ma/kV adjustment per patient size (including targeted exams where dose is matched to indication, i.e. head), or iterative reconstruction technique. FINDINGS: No midline shift or mass effect is evident. There is generalized atrophy with periventricular ischemic gliotic changes. There is hyperdensity within the distal right internal carotid artery and the M1 segment of the right middle cerebral artery suggesting thrombosis in these vessels. No acute intracranial hemorrhage. No midline shift.. 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 Atrophy with chronic ischemic gliotic changes. Dr. Moya the patient's position in the ER was notified of these findings by telephone 03/19/2021 at 10:15 a.m. Dictated by: Williams Key MD 03/19/2021 10:19 Williams Key MD in [place] 03/19/2021 10:19
--- NOTE | 2021-03-19 09:55 | XR_ITS ---
PROCEDURE: XR CHEST PORTABLE CLINICAL HISTORY: stroke symptoms COMPARISON: CR CXR2 XR chest AP from 06/16/2018 CR XR CHEST PORTABLE from 04/23/2020 CR XR CHEST 2V from 09/22/[address] CHEST W CON from 10/02/2020 FINDINGS: There has been a prior CABG. There is cardiomegaly without failure. Biventricular and right atrial pacemaker is present from left subclavian approach. Minimal blunting of the right CP angle suggesting small effusion. There are low lung volumes. No lobar consolidation or collapse. The pacemaker generator obscures the left lung base laterally. IMPRESSION: Low lung volumes with cardiomegaly with possible trace right effusion. Dictated by: Williams Key MD 03/19/2021 11:09 Williams Key MD in [facility] 03/19/2021 11:09
--- NOTE | 2021-03-19 09:59 | [facility].EDGENADL ---
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 The time I documented below is in addition to time spent performing reported procedures but includes the following listed in this critical care notation. Total Critical Care Time: 45 Vital system(s) involved:: Central Nervous System My critical care processes included: Assessment & monitoring of V/S, Initial and Re-exams, Data Review/Interpretation, Coordinating Care, Medication Orders and management, Documentation Medical Decision Making - Bo Inquiry Pt receiving controlled substance: No Vital Signs: 03/19/21 09:40 03/19/21 11:01 03/19/21 11:19 Temperature 98.2 F 98.0 F Temperature Source Oral Oral Pulse Rate 70 70 Pulse Rate [Left Radial] 73 Respiratory Rate 18 22 22 Blood Pressure 94/44 L 94/44 L Blood Pressure [Right Arm] 111/53 L Blood Pressure Mean 62 Blood Pressure Mean [Right Arm] 72 Blood Pressure Source Automatic Cuff Blood Pressure Source [Right Arm] Automatic Cuff Blood Pressure Position Sitting Blood Pressure Position [Right Arm] Sitting 02 Sat by Pulse Oximetry 94 L 96 Oxygen Delivery Method Room Air Nasal Cannula - Lab Data Lab Results 03/19/21 10:15: WBC 5.8, RBC 4.21 L, Hgb 12.8 L, Hct 41.9 L, MCV 99.4 H, MCH 30.5, MCHC 30.7 L, RDW 14.8, Plt Count 144, MPV 8.1, Neut % (Auto) 74.7, Lymph % (Auto) 17.1, Vigo % (Auto) 5.6, Eos % (Auto) 1.7, Baso % (Auto) 0.9, Neut # (Auto) 4.3, Lymph # (Auto) 1.0, Vigo # (Auto) 0.3, Eos # (Auto) 0.1, Baso # (Auto) 0.1 03/19/21 10:15: Sodium 142, Potassium 3.8, Chloride 100, Carbon Dioxide 33 H, Anion Gap 12.8, BUN 24 H, Creatinine 1.40 H, Estimated Creat Clear 35, Estimated GFR 48 L, Est GFR ( Amer) 58 L, Glucose 145 H, Calcium 9.3, Total Bilirubin 0.7, AST 36, ALT 29, Alkaline Phosphatase 52, Troponin I 0.05 H, Total Protein 6.5, Albumin 4.1, Globulin 2.4, Albumin/Globulin Ratio 1.7 03/19/21 10:15: PT 11.7, INR 1.04, APTT 27.6 03/19/21 11:03: SARS-CoV-2 (PCR) Not detected, Influenza A Untype (PCR) Not detected, Influenza Type B (PCR) Not detected Result diagrams: 03/19/21 10:15 03/19/21 10:15 Orders (Tests/Meds): ED MEDICATIONS Discontinued Medications Generic Name Dose Route Start Last Admin Trade Name Freq PRN Reason Stop Dose Admin Sodium Chloride 1,000 mls @ 999 mls/hr 03/19/21 11:30 03/19/21 10:39 Sod Chlor 0.9% 1000ml Bag IV 03/19/21 12:30 999 mls/hr .[id number] KATHERYN Administration - Radiology Data #1 Image(s): Chest Image Reviewed: Yes I reviewed the patient's radiology image Preliminary Findings: Abnormal (Cardiomegaly and patchy airspace disease. Pacemaker.) - CT Data CT Scan: Head Time Received: 10:[address] Reviewed: Yes: I discussed the CT results w/the radiologist, I have viewed the radiologist's interpretation Findings Narrative: PROCEDURE: CT HEAD/BRAIN WO CON CLINICAL INDICATION: stroke symptoms COMPARISON: CT HEADWO CT head/brain wo con from 06/16/2018 TECHNIQUE: Axial images obtained. All CT scans at the facility use one or more dose reduction, viz: automated exposure control, ma/kV adjustment per patient size (including targeted exams where dose is matched to indication, i.e. head), or iterative reconstruction technique. FINDINGS: No midline shift or mass effect is evident. There is generalized atrophy with periventricular ischemic gliotic changes. There is hyperdensity within the distal right internal carotid artery and the M1 segment of the right middle cerebral artery
--- NOTE | 2021-03-19 10:05 | ECG_ITS ---
APPROVED REPORT Exam: Resting ECG HR:70 bpm ECG Measurements Heart Rate 70 AXES QRSd 164 QRS -82 QT 570 T 122 QTc 615 Conclusion Electronic ventricular pacemaker Electronically signed by : Kashif Marie MD 03/20/2021 12:37:41
--- NOTE | 2021-03-19 10:20 | PC.NURSE ---
[facility] Stroke team has been called
--- NOTE | 2021-03-19 10:26 | PC.NURSE ---
on the phone with
--- NOTE | 2021-03-19 10:27 | PC.NURSE ---
[facility] has accepted, MD talking with [facility] stroke team
--- NOTE | 2021-03-19 10:30 | PC.NURSE ---
Unable to perform NIHSS at this time due to pt status at this time, pt does not open eyes at this time, slurred speech
--- NOTE | 2021-03-19 10:34 | PC.NURSE ---
at accepted, francheska galvan notified
--- NOTE | 2021-03-19 10:38 | PC.NURSE ---
on the phone with in regards to treatment
[2021-03-19 10:43] LABS: Basophils # 0.1 K/mm3 (0-0.2); Basophils % 0.9 % (0.1-2.0); Eosinophils # 0.1 K/mm3 (0.0-0.4); Eosinophils % 1.7 % (0.1-12.0); Hematocrit 41.9 % (42.0-52.0); Hemoglobin 12.8 g/dL (14.1-18.0); Lymphocytes % 17.1 % (10-50); Mean Corpuscular HGB Conc 30.7 g/dL (31.8-35.4); Mean Corpuscular Hemoglobin 30.5 pg (27.0-31.2); Mean Corpuscular Volume 99.4 fl (80-94); Mean Platelet Volume 8.1 fl (7.4-10.4); Monocytes # 0.3 K/mm3 (0.1-1.0); Monocytes % 5.6 % (1.7-9.3); Neutrophils # 4.3 K/mm3 (1.8-7.8); Neutrophils % 74.7 % (37.0-80.0); Platelet Count 144 K/mm3 (142-424); Red Blood Count 4.21 M/mm3 (4.60-6.20); Red Cell Distribution Width 14.8 % (11.5-17.5); White Blood Count 5.8 K/mm3 (4.8-10.8)
[2021-03-19 10:47] LABS: Chloride 100 mmol/L (98-107)
[2021-03-19 10:48] LABS: Potassium 3.8 mmoL/L (3.5-5.1); Sodium 142 mmol/L (136-145)
[2021-03-19 10:50] LABS: Activated Partial Thrombo Time 27.6 seconds (22.8-30.6); Alanine Aminotransferase 29 U/L (12-78); Alkaline Phosphatase 52 U/L (38-126); Aspartate Amino Transferase 36 U/L (17-59); Bilirubin,Total 0.7 mg/dl (0.2-1.3); Blood Urea Nitrogen 24 mg/dl (9-20); Creatinine Clearance Estimated 35 mL/min (50-200); Estimated Glomerular Filt Rate 48 ml/min (>60); GFR (African American) 58 ML/MIN (>60); INR 1.04 (0.9-1.1); Prothrombin Time 11.7 seconds (10.1-12.5)
[2021-03-19 10:51] LABS: Albumin Level 4.1 g/dl (3.5-5.0); Albumin/Globulin Ratio 1.7 (1.1-1.8); Anion Gap 12.8 mEq/L (5-15); Calcium 9.3 mg/dl (8.4-10.2); Carbon Dioxide 33 mmol/L (22.0-30.0); Globulin 2.4 g/dL (1.3-3.2); Glucose 145 mg/dl (74-100); Total Protein,Serum 6.5 g/dl (6.3-8.2)
--- NOTE | 2021-03-19 10:58 | PC.NURSE ---
Patient daughter has patient upper and lower dentures as well as glasses and shoes in a personal belonging bag
[2021-03-19 11:01] VITALS: BP 94/44; PULSE 70; RESP 22; O2SAT 96
[2021-03-19 11:03] LABS: Troponin I 0.05 ng/ml (0.00-0.034)
--- NOTE | 2021-03-19 11:15 | PC.NURSE ---
PT departed with air evac to transport to [facility]
[2021-03-19 11:16] LABS: Coronavirus 19, PCR Not Detected (NotDetected); Influenza A, PCR Not Detected (NotDetected); Influenza B, PCR Not Detected (NotDetected)
[2021-03-19 11:19] VITALS: BP 94/44; PULSE 70; RESP 22; TEMP 36.7; O2SAT 96
== END 2021-03-19 11:25 | disposition short-term general hospital (02) ==
PROVIDERS: Emergency Provider Emergency Medicine; PCP Internal Medicine
DX: I63.511 Cerebral infarction due to unspecified occlusion or stenosis of right middle cerebral artery (principal); I25.10 Atherosclerotic heart disease of native coronary artery without angina pectoris; I48.0 Paroxysmal atrial fibrillation; I10 Essential (primary) hypertension; E78.5 Hyperlipidemia, unspecified; K21.9 Gastro-esophageal reflux disease without esophagitis; I25.2 Old myocardial infarction; Z95.1 Presence of aortocoronary bypass graft; Z79.899 Other long term (current) drug therapy; Z20.822 Contact with and (suspected) exposure to COVID-19
CPT/HCPCS: 70450; 71045; 80053; 84484; 85025; 85610; 85730; 93005; 96365; 99284; C9803; U0003; U0005